=== PATIENT | female | born 1950 | race Caucasian/White ===

== ENCOUNTER 2020-04-07 19:08 | Observation (INO) | payer MEDICARE, SELFPAY ==
--- NOTE | 2020-04-07 19:17 | ED.NAVMDI ---
HPI - Nausea/Vomiting/Diarrhea General Chief complaint: General Medical Stated complaint: general weakness, n/v Time Seen by Provider: 04/07/20 19:17 Source: patient Mode of arrival: EMS Limitations: no limitations History of Present Illness HPI Narrative: Patient just discharged from [facility] after a fall and brain bleed. now weak all over with LAVONNE MD elicited complaint: nausea and vomiting Pertinent past history: other (recent brain bleed and hospitalization) Onset (ago): day(s) Description of vomiting: watery Description of diarrhea: watery Context: trauma and anticoagulant use Associated symptoms: other (shortness of breath) Related Data Allergies Allergy/AdvReac Type Severity Reaction Status Date / Time colchicine Allergy Unknown Verified 04/07/20 19:29 Review of Systems Constitutional: Constitutional: Reports no additional constitutional complaints Eyes: Eyes: Reports no additional eye complaints ENT: Denies dizziness Cardiovascular: Cardiovascular: Reports no additional cardiovascular complaints Respiratory: Respiratory: Reports as per HPI Gastrointestinal: Gastrointestinal: Reports no additional gastrointestinal complaints Genitourinary: Genitourinary: Reports no additional female genitourinary complaints Musculoskeletal: Musculoskeletal: Reports no additional musculoskeletal complaints Integumentary/Breasts: Skin/Breast: Denies rash Neurologic: Reports system reviewed and no additional complaints, except as documented, Denies dizziness and Denies Sensory deficit (Neuro) Psychiatric: Psychiatric: Denies anxiety PMFSH Social History Social History Alcohol intake: never Smoking Status: Never smoker Use of substances other than those prescribed or required for medical reasons: No Advance Directives: No Advance Directives Information Provided: Yes Physical Exam Vital Signs: Vital Signs: Vital Signs Temp Pulse Resp BP Pulse Ox 04/08/20 00:00 98.6 F 87 20 141/55 H 96 04/07/20 22:21 95 04/07/20 22:16 99.5 F 94 18 151/60 H 93 04/07/20 20:00 99.5 F 88 19 137/56 L 94 04/07/20 19:20 98.6 F 83 18 126/51 L 92 Body Mass Index 25.6 Const: General: healthy appearing Nutritional Appearance: average body habitus Orientation/consciousness: oriented to person and patient oriented x3 Limitations: no limitations HENMT: Head: Yes normal to inspection Ears: external ears normal General nose exam: Normal external nose present Mouth: Normal oral and palatal mucosa present and oropharynx normal Throat: Yes posterior oropharynx normal Eyes: General: appearance normal, both eyes and all related structures Neck: Other: supple Neck: Yes normal visual inspection Chest: Chest palpation & inspection: normal inspection of the chest Resp: Other: left sided rales Cardio: Jugular venous distension: no JVD Rate: regular rate Rhythm: regular rhythm Heart sounds: S1 normal heart sound present and S2 normal heart sound present GI: Inspection: Yes normal to inspection Palpation (GI): Soft to palpation, nontender and No hepatosplenomegaly present Auscultation: normal bowel sounds : General: Yes no CVA tenderness Back/Spine/Pelvis: Back: no CVA tenderness Skin: Other: periorbital ecchymosis Neuro: General: oriented to person and patient oriented x3 Cranial nerves: Yes CN's II-XII intact bilaterally Motor exam (neuro): 5/5 motor strength present throughout Sensory Exam: No Sensory deficit (Neuro) Extrem: General: Yes normal to inspection Psych: Appearance: grossly normal Course Course Course Narrative: patient still with weakness and vomiting will admit, no evidence of pneumonia Reevaluation(s) Reevaluation #1: discussed with hospitalist MDM - Nausea/Vomiting/Diarrhea MDM Narrative Medical decision making narrative: entertained COVID, post concussion, gastroenteritis, subdural hematoma Lab Data Result diagrams: 04/07/20 20:37 04/07/20 20:37 Labs: Lab Results 04/07/20 04/07/20 Range/Units 20:37 20:37 WBC 5.6 (4.8-10.8) X10*3/uL RBC 2.89 L (4.20-5.50) X10*6/uL Hgb 8.2 L (12.0-16.0) g/dl Hct 25.3 L (37-47) % MCV 87.5 (80-98) fL MCH 28.4 (27.0-33.0) pg MCHC 32.4 (31.0-35.0) g/dl RDW 17.7 H (11.0-16.0) % Plt Count 117 L (160-400) X10*3/uL MPV 9.5 (9.4-12.3) fL Immature Gran % (Auto) 1.8 H (0.0-0.4) % Neut % (Auto) 74.0 H (45-73) % Lymph % (Auto) 11.7 L (20-40) % [place] % (Auto) 11.2 H (2-11) % Eos % (Auto) 0.9 (0-4) % Baso % (Auto) 0.4 (0-2) % Lymph # (Auto) 0.7 L (1.2-4.9) X10*3/uL [place] # (Auto) 0.6 (0.1-1.2) X10*3/uL Eos # (Auto) 0.1 (0.0-0.4) X10*3/uL Baso # (Auto) 0.0 (0.0-0.2) X10*3/uL Abs Immat Gran (auto) 0.10 H (0.00-0.03) X10*3/uL Absolute Neuts (auto) 4.2 (2.0-8.3) X10*3/uL Absolute Nucleated RBC 0.000 (0.0-0.012) X10*3/uL Nucleated RBC % (auto) 0.0 (0.0-0.2) /100WBC Smear Tech's Comments VERIFIED Sodium 134 L (135-145) mmol/L Potassium 3.6 (3.3-5.1) mmol/l Chloride 100 (96-108) mmol/L Carbon Dioxide 22 (22-29) mmol/L Anion Gap 16 (12-20) BUN 7 L (9-16) mg/dL Creatinine 0.77 (0.5-1.4) mg/dL Estim Creat Clear Calc 69.1 Estimated GFR > 60 Random Glucose 126 H (60-115) mg/dL Calcium 7.3 L (8.4-10.2) mg/dL Discharge Plan Discharge Clinical Impression: Moderate nausea and vomiting, SARS-associated coronavirus infection, Chronic subdural hematoma Patient Disposition: Admitted As Inpatient
[2020-04-07 19:20] VITALS: BP 126/51; BP 95/65; PULSE 103; PULSE 83; RESP 18; TEMP 37; O2SAT 92; O2SAT 94; BMI 25.6
--- NOTE | 2020-04-07 19:46 | CT_ITS ---
EXAMINATION: CT HEAD WITHOUT CONTRAST CLINICAL INFORMATION: Recent brain bleed COMPARISON: None TECHNIQUE: Contiguous axial imaging was performed from the skull base to vertex without intravenous administration of contrast. This CT examination was performed using dose optimization techniques as appropriate, variously including the following: *Automated exposure control *Adjustment of mA and/or kV according to patient size (this includes techniques or standardized protocols for targeted exams where dose is matched to indication/reason for exam; i.e. extremities or head) *Use of iterative reconstruction technique DLP: 615 mGy-cm FINDINGS: Tiny subdural hematoma along the right vertex which measures only approximately 5 mm in maximum thickness. No abnormal mass effect or midline shift is seen. [place] to white matter differentiation is well preserved. The ventricles are normal in size. The osseous structures and soft tissues are normal. The right maxillary sinus with only partially visualized, however, there is suggestion of prior sinus surgery. IMPRESSION: Tiny subdural hematoma along the right vertex. This would be consistent with provided history. Recommend correlation with prior imaging if available.
--- NOTE | 2020-04-07 19:46 | XR_ITS ---
EXAMINATION: XR CHEST CLINICAL INFORMATION: Hypoxia and left-sided rales COMPARISON: None TECHNIQUE: 2 views of the chest were obtained. FINDINGS: Low lung volumes. No focal consolidation or mass. Normal pulmonary vascularity. No pleural effusion or pneumothorax. Calcified aortic arch. Normal heart size. IMPRESSION: No acute pulmonary disease.
[2020-04-07 20:00] VITALS: BP 137/56; PULSE 88; RESP 19; TEMP 37.5; O2SAT 94
--- NOTE | 2020-04-07 20:00 | PC.NURSE ---
patient transported to ct scan, will goto xray and then change to room 1 when she comes back
[2020-04-07] MEDS: 0.9 % Sodium Chloride 500 ML 1000 ML IV (20:25)
[2020-04-07] MEDS: ondansetron HCL 4 MG/2 ML VIAL IVPUSH (20:25)
[2020-04-07 20:48] LABS: Basophils Percent Auto 0.4 % (0-2); Eosinophils Absolute Auto 0.1 X10*3/uL (0.0-0.4); Eosinophils Percent Auto 0.9 % (0-4); Hematocrit 25.3 % (37-47); Hemoglobin 8.2 g/dl (12.0-16.0); Imm Gran Pct Auto 1.8 % (0.0-0.4); Lymphocytes Absolute Auto 0.7 X10*3/uL (1.2-4.9); Lymphocytes Percent Auto 11.7 % (20-40); MANUAL DIFF FLAG SCAN; Mean Corpuscular HGB Conc 32.4 g/dl (31.0-35.0); Mean Corpuscular Hemoglobin 28.4 pg (27.0-33.0); Mean Corpuscular Volume 87.5 fL (80-98); Mean Platelet Volume 9.5 fL (9.4-12.3); Monocytes Absolute Auto 0.6 X10*3/uL (0.1-1.2); Monocytes Percent Auto 11.2 % (2-11); Neutrophils Absolute Auto 4.2 X10*3/uL (2.0-8.3); Platelet Count 117 X10*3/uL (160-400); Red Blood Count 2.89 X10*6/uL (4.20-5.50); Red Cell Distribution Width 17.7 % (11.0-16.0); SCAN SMEAR FLAG 1; White Blood Count 5.6 X10*3/uL (4.8-10.8)
--- NOTE | 2020-04-07 21:00 | PC.NURSE ---
patient a&ox3, vitals obtained, pt medicated per order, blood obtained per order, pt had complete bed change as she was incontinent of large amount of liquid stool/yellow in color
[2020-04-07 21:07] LABS: SLIDE REVIEW VERIFIED
[2020-04-07 21:14] LABS: Anion Gap 16 (12-20); Blood Urea Nitrogen 7 mg/dL (9-16); Calcium 7.3 mg/dL (8.4-10.2); Carbon Dioxide 22 mmol/L (22-29); Chloride 100 mmol/L (96-108); Creatinine Clr Calc Pharmacy 69.1; Estimated Glomerular Filt Rate > 60; Glucose Random 126 mg/dL (60-115); Potassium 3.6 mmol/l (3.3-5.1); Sodium 134 mmol/L (135-145)
--- NOTE | 2020-04-07 21:28 | PC.NURSE ---
patient urinated on bedpan
[2020-04-07 22:16] VITALS: BP 151/60; PULSE 94; RESP 18; TEMP 37.5; O2SAT 93
--- NOTE | 2020-04-07 22:19 | PC.NURSE ---
patient a&ox3, used bedpan, vitals obtained/patients o2 sat running between 91-93% she drops with movement in bed, applied 2l o2 patients o2 sat increased to 95%, will continue to monitor.
[2020-04-07 22:21] VITALS: O2SAT 95
[2020-04-08] VITALS (11 sets, daily range): BP systolic 130–154; BP diastolic 55–70; PULSE 74–90; RESP 16–20; TEMP 36.2–37; O2SAT 93–99; BMI 25.3
--- NOTE | 2020-04-08 02:05 | PC.NURSE ---
nurse to nurse report given. pt states she was covid swab at approx 2100 already
[2020-04-08] MEDS: 0.9 % Sodium Chloride 1,000 ML 100 ML IVCONT ×3 (03:22→23:42)
--- NOTE | 2020-04-08 05:49 | P.HPIM_ITS ---
History of Present Illness Date of Service: 04/08/20 Chief Complaint: generalized weakness, diarrhea this is a 69-year-old female with past medical history of recently diagnosed subdural hematoma, diabetes, hypertension, who presents hospital post discharged from [facility] 3 days ago for management of subdural hematoma with weakness. Patient reports that ever since discharge from [facility] she has been generally weak and has had a significant amount of diarrhea daily. She reported nausea vomiting to the ED but when I asked her several time she denies any nausea and vomiting. She denies any abdominal pain. She reports that the subdural hematoma was secondary to a fall. She denies headache, change in vision, no chest pain or shortness of breath. No urinary symptoms and no lower extremity edema. She denies any weakness or numbness or tingling in any extremity. On arrival to the ED patient hemodynamically stable. With no significant abnormal vitals labs are significant for hemoglobin of 8.2 which dropped from 9.4 on 05/31 sodium 134. coronavirus test was collected and sent out per ED past medical history: Hypertension, hyperlipidemia, diabetes, GERD, atrial fibrillation currently of her anticoagulant past surgical history: not obtained family history: Denies social history: Comes from home, denies tobacco alcohol or illicit drugs Review of Systems Review of Systems: Yes all other systems are reviewed and are negative ENT: Denies dizziness Neurologic: Reports system reviewed and no additional complaints, except as documented, Denies dizziness and Denies Sensory deficit (Neuro) [facility] Medical History Atrial fibrillation Diabetes mellitus, type 2 Hypertension Lymphoma Social History Alcohol intake: never Smoking Status: Never smoker Use of substances other than those prescribed or required for medical reasons: No Advance Directives: No Advance Directives Information Provided: Yes Meds Allergies Allergy/AdvReac Type Severity Reaction Status Date / Time colchicine Allergy Unknown Verified 04/07/20 19:29 Home Medications Medication Instructions Recorded Confirmed Type atorvastatin 1 tab PO DAILY 04/08/20 04/08/20 History diltiazem HCl 1 cap PO DAILY 04/08/20 04/08/20 History melatonin 3 mg PO BEDTIME PRN 04/08/20 04/08/20 History metformin 2 tab PO BID 04/08/20 04/08/20 History metoprolol succinate 3 tab PO DAILY 04/08/20 04/08/20 History pantoprazole 1 tab PO DAILY 04/08/20 04/08/20 History prednisone 3 tab PO DAILY 04/08/20 04/08/20 History Physical Exam Vital Signs and Narrative: Vital Signs: Last Vital Signs Temp 97.5 F 04/08/20 04:00 Pulse 86 04/08/20 04:00 Resp 17 04/08/20 04:00 BP 134/64 04/08/20 04:00 Pulse Ox 99 04/08/20 04:00 Body Mass Index 25.3 Const: General: cooperative and no acute distress Orientation/consciousness: patient oriented x3 HENMT: Other: bruises on face Eyes: General: appearance normal, both eyes and all related structures Pupils: Equal, round and reactive pupils present Resp: Effort & Inspection: normal respiratory effort and able to speak in complete sentences Auscultation: clear to auscultation bilaterally Cardio: Rate: regular rate Rhythm: regular rhythm GI: Palpation (GI): Soft to palpation Auscultation: normal bowel sounds Skin: General skin exam: no rashes or lesions noted Neuro: General: patient oriented x3 Cranial nerves: Yes Equal, round and reactive pupils present Cognition (Neuro): normal cognition Sensory Exam: No Sensory deficit (Neuro) Extrem: General: Yes normal to inspection and Yes no pedal edema Results Labs Labs: Laboratory Tests 04/07/20 04/07/20 20:37 20:37 WBC 5.6 RBC 2.89 L Hgb 8.2 L Hct 25.3 L MCV 87.5 MCH 28.4 MCHC 32.4 RDW 17.7 H Plt Count 117 L MPV 9.5 Immature Gran % (Auto) 1.8 H Neut % (Auto) 74.0 H Lymph % (Auto) 11.7 L [place] % (Auto) 11.2 H Eos % (Auto) 0.9 Baso % (Auto) 0.4 Lymph # (Auto) 0.7 L [place] # (Auto) 0.6 Eos # (Auto) 0.1 Baso # (Auto) 0.0 Abs Immat Gran (auto) 0.10 H Absolute Neuts (auto) 4.2 Absolute Nucleated RBC 0.000 Nucleated RBC % (auto) 0.0 Smear Tech's Comments VERIFIED Sodium 134 L Potassium 3.6 Chloride 100 Carbon Dioxide 22 Anion Gap 16 BUN 7 L Creatinine 0.77 Estim Creat Clear Calc 69.1 Estimated GFR > 60 Random Glucose 126 H Calcium 7.[address] scan - head: Radiologist's impression: IMPRESSION: Tiny subdural hematoma along the right vertex. This would be consistent with provided history. Recommend correlation with prior imaging if available. Assessment and Plan (1) Diarrhea: Status: Acute (2) Generalized weakness: Status: Acute (3) Chronic subdural hematoma: Status: Acute (4) Atrial fibrillation: Status: Acute (5) Diabetes mellitus, type 2: Status: Acute this is a 69-year-old female with recently diagnosed subdural hematoma who was discharged from [facility] few days ago presents to the hospital with complaints of diarrhea and generalized weakness. Patient apparently also complained about nausea vomiting to the ED although to me she denies this. # diarrhea - reports recent antibiotic use therefore C diff must be ruled out - denies abdominal pain, no leukocytosis, afebrile - will send C diff, stool cultures, - start IV fluids - hold off starting antibiotics given patient has no significant systemic signs of infection # generalized weakness - most likely the condition post hospitalization plan: - PT OT, care management for discharge planning to possible rehab # subdural hematoma - sustained at the beginning of this month, secondary to a fall, patient managed at [facility] - CT of the head now shows small subdural hematoma with no clear changes - patient demonstrates no neurological deficits plan: - will monitor for any neurological changes # atrial fibrillation - patient currently not on anticoagulation denies symptoms secondary to the recent subdural hematoma - will continue diltiazam and metoprolol # diabetes mellitus - hold metformin - start low-dose sliding scale insulin - diabetic diet # hypertension - continue diltiazem DVT prophylaxis: SCDs date of service 04/08/2020
[2020-04-08 08:13] LABS: Glucose, Whole Blood 62 mg/dL (60-115)
[2020-04-08] MEDS: dilTIAZem HCL CD 120 MG CAP.ER.DEG PO (08:42)
[2020-04-08] MEDS: Omeprazole 40 MG CAPSULE.DR PO (08:42)
[2020-04-08] MEDS: Atorvastatin Calcium 40 MG TABLET PO (08:42)
[2020-04-08] MEDS: Metoprolol Succinate ER 50 MG TAB.ER.24H 150 MG PO (08:42)
[2020-04-08] MEDS: predniSONE 1 MG TABLET 3 MG PO (08:42)
[2020-04-08 11:30] LABS: SARS COV2 PCR INHOUSE NEGATIVE (Negative)
[2020-04-08 11:51] LABS: Glucose, Whole Blood 94 mg/dL (60-115)
[2020-04-08 16:21] LABS: Glucose, Whole Blood 139 mg/dL (60-115)
[2020-04-08 21:12] LABS: Glucose, Whole Blood 136 mg/dL (60-115)
[2020-04-08] MEDS: Acetaminophen 325 MG TABLET 650 MG PO (23:00)
[2020-04-09] VITALS (7 sets, daily range): BP systolic 124–158; BP diastolic 60–76; PULSE 68–84; RESP 16–20; TEMP 36.1–36.6; O2SAT 94–96
[2020-04-09 05:11] LABS: Basophils Percent Auto 0.3 % (0-2); Eosinophils Absolute Auto 0.1 X10*3/uL (0.0-0.4); Eosinophils Percent Auto 1.9 % (0-4); Hematocrit 25.9 % (37-47); Hemoglobin 7.9 g/dl (12.0-16.0); Imm Gran Abs Auto 0.05 X10*3/uL (0.00-0.03); Imm Gran Pct Auto 1.3 % (0.0-0.4); Lymphocytes Absolute Auto 0.5 X10*3/uL (1.2-4.9); Lymphocytes Percent Auto 12.8 % (20-40); MANUAL DIFF FLAG SCAN; Mean Corpuscular HGB Conc 30.5 g/dl (31.0-35.0); Mean Corpuscular Hemoglobin 27.2 pg (27.0-33.0); Mean Corpuscular Volume 89.3 fL (80-98); Mean Platelet Volume 9.3 fL (9.4-12.3); Monocytes Absolute Auto 0.6 X10*3/uL (0.1-1.2); Monocytes Percent Auto 15.5 % (2-11); Neutrophils Absolute Auto 2.6 X10*3/uL (2.0-8.3); Neutrophils Percent Auto 68.2 % (45-73); Red Cell Distribution Width 17.8 % (11.0-16.0); SCAN SMEAR FLAG 1; White Blood Count 3.8 X10*3/uL (4.8-10.8)
[2020-04-09 05:31] LABS: Platelet Count 89 X10*3/uL (160-400)
[2020-04-09 05:35] LABS: SLIDE REVIEW VERIFIED
[2020-04-09 05:53] LABS: Anion Gap 15 (12-20); Blood Urea Nitrogen 7 mg/dL (9-16); Calcium 7.5 mg/dL (8.4-10.2); Carbon Dioxide 22 mmol/L (22-29); Chloride 104 mmol/L (96-108); Creatinine Clr Calc Pharmacy 75.6; Estimated Glomerular Filt Rate > 60; Glucose Random 118 mg/dL (60-115); Potassium 3.4 mmol/l (3.3-5.1); Sodium 138 mmol/L (135-145)
[2020-04-09 07:54] LABS: Glucose, Whole Blood 99 mg/dL (60-115)
[2020-04-09] MEDS: predniSONE 1 MG TABLET 3 MG PO (08:01)
[2020-04-09] MEDS: Atorvastatin Calcium 40 MG TABLET PO (08:01)
[2020-04-09] MEDS: Omeprazole 40 MG CAPSULE.DR PO (08:01)
[2020-04-09] MEDS: Metoprolol Succinate ER 50 MG TAB.ER.24H 150 MG PO (08:02)
[2020-04-09] MEDS: dilTIAZem HCL CD 120 MG CAP.ER.DEG PO (08:02)
[2020-04-09 11:36] LABS: Glucose, Whole Blood 148 mg/dL (60-115)
--- NOTE | 2020-04-09 11:41 | P.PNIM_ITS ---
Subjective Subjective Date of Service: 04/09/20 Interval History: Seen in follow up for for weakness and diarrhea Review of Systems Card: no chest pain GI: No n/v or diarrhea Gen: no fever Physical Exam Vital Signs: Vital Signs: Vital Signs Temp Pulse Resp BP Pulse Ox 04/09/20 11:35 97.0 F 74 18 148/67 H 95 04/09/20 08:02 68 158/60 H 04/09/20 07:48 97.8 F 68 16 96 04/09/20 03:55 97.5 F 72 20 143/68 H 94 04/08/20 23:28 97.7 F 76 18 141/67 H 96 04/08/20 19:47 98.1 F 75 17 152/69 H 93 04/08/20 15:53 97.9 F 74 18 134/69 95 04/08/20 12:00 97.8 F 82 18 130/60 95 Constitutional Awake and Alert, No apparent distress Neck Supple, No lymphadenopathy Cardiovascular RRR, No M/R/G, S1 S2, No S3 S4, No pedal edema Respiratory Lungs clear, No respiratory distress Gastrointestinal Non tender, Non-distended Skin No rash Neurological Alert & oriented x3 Psychological Appropriate affect Objective Data Current Medications Generic Name Dose Route Start Last Admin Trade Name Freq PRN Reason Stop Dose Admin Acetaminophen 650 mg 04/08/20 03:03 04/08/20 23:00 Acetaminophen 325 Mg Tablet PO 650 mg Q6H PRN Administration Pain, Mild (Pain Scale 1-3) Atorvastatin Calcium 40 mg 04/08/20 09:00 04/09/20 08:01 Atorvastatin Calcium 40 Mg Tablet PO 40 mg DAILY AXEL Administration Diltiazem HCl 120 mg 04/08/20 09:00 04/09/20 08:02 Diltiazem Hcl Cd 120 Mg Cap.Er.Deg PO 120 mg DAILY [facility] Administration Protocol Insulin Human Lispro 0 unit 04/08/20 07:30 04/09/20 11:39 Insulin Lispro 100 Unit/Ml 3 Ml Vial SUBCUT Not Given QIDACHS [facility] Protocol Melatonin 3 mg 04/08/20 05:50 Melatonin 3 Mg Tablet PO BEDTIME PRN Sleep Metoprolol Succinate 150 mg 04/08/20 09:00 04/09/20 08:02 Metoprolol Succinate Er 50 Mg Tab.Er.24h PO 150 mg DAILY [facility] Administration Protocol Omeprazole 40 mg 04/08/20 09:00 04/09/20 08:01 Omeprazole 40 Mg Capsule. PO 40 mg DAILY AXEL Administration Ondansetron HCl 4 mg 04/08/20 03:03 Ondansetron Hcl 4 Mg/2 Ml Vial IVPUSH Q8H PRN Nausea and Vomiting Prednisone 3 mg 04/08/20 09:00 04/09/20 08:01 Prednisone 1 Mg Tablet PO 3 mg DAILY AXEL Administration Sodium Chloride 3 ml 04/08/20 08:00 04/09/20 08:01 0.9 % Sodium Chloride Flush 3 Ml Syringe IVFLUSH Not Given QSHIFT AXEL Zolpidem Tartrate 5 mg 04/08/20 03:03 Zolpidem Tartrate 5 Mg Tablet PO BEDTIME PRN Insomnia Labs CBC & Chem 7: 04/09/20 04:59 04/09/20 04:59 Microbiology Microbiology Results: Microbiology 04/07/20 21:07 Blood - Venous Blood Culture - Preliminary No growth after 24 hours. 04/07/20 20:37 Blood - Venous Blood Culture - Preliminary No growth after 24 hours. Assessment and Plan (1) Generalized weakness: Status: Acute (2) Diarrhea: Status: Acute (3) Diabetes mellitus, type 2: Status: Acute (4) Atrial fibrillation: Status: Acute (5) Chronic subdural hematoma: Status: Acute Assessment and Plan: 69-year-old female with recently diagnosed subdural hematoma who was discharged from [facility] few days ago presents to the hospital with complaints of diarrhea and generalized weakness. Patient apparently also complained about nausea vomiting to the ED although to me she denies this. # Diarrhea seems to have self limited, haven't been able to collect sample for C dif, hydrated and tolerating diet # generalized weakness--multifactorial including recent hospitalization at [facility], dehydration from diarrhea. -PT recommends STR # subdural hematoma - sustained at the beginning of this month, secondary to a fall, patient managed at [facility] - CT of the head now shows small subdural hematoma with no clear changes - patient demonstrates no neurological deficits - will monitor for any neurological changes # atrial fibrillation - patient currently not on anticoagulation denies symptoms secondary to the recent subdural hematoma - will continue diltiazam and metoprolol # diabetes mellitus - hold metformin - sliding scale insulin - diabetic diet # hypertension - continue diltiazem DVT prophylaxis with device, and possible d/c later today
--- NOTE | 2020-04-09 12:45 | MHC.CM.PN ---
met with pt who wants to go to [facility] when dcd, dr erazo and physical therapy are recommending str referreal to [facility] per pt choice
[2020-04-09] MEDS: 0.9 % Sodium Chloride Flush 3 ML SYRINGE IVFLUSH (16:47)
[2020-04-09 16:53] LABS: Glucose, Whole Blood 140 mg/dL (60-115)
[2020-04-09] MEDS: ondansetron HCL 4 MG/2 ML VIAL IVPUSH (20:40)
[2020-04-09 20:50] LABS: Glucose, Whole Blood 150 mg/dL (60-115)
[2020-04-10] MEDS: 0.9 % Sodium Chloride Flush 3 ML SYRINGE IVFLUSH ×2 (01:03→07:39)
[2020-04-10 03:45] VITALS: BP 146/56; PULSE 84; RESP 18; TEMP 36.4; O2SAT 93
[2020-04-10] MEDS: ondansetron HCL 4 MG/2 ML VIAL IVPUSH (07:39)
[2020-04-10 07:48] LABS: Glucose, Whole Blood 105 mg/dL (60-115)
[2020-04-10 08:00] VITALS: BP 165/79; PULSE 94; RESP 20; TEMP 36.6; O2SAT 91
[2020-04-10 10:10] VITALS: BP 165/79; PULSE 94
[2020-04-10] MEDS: Metoprolol Succinate ER 50 MG TAB.ER.24H 150 MG PO (10:10)
[2020-04-10] MEDS: Omeprazole 40 MG CAPSULE.DR PO (10:10)
[2020-04-10 10:11] VITALS: PULSE 94
[2020-04-10] MEDS: Atorvastatin Calcium 40 MG TABLET PO (10:11)
[2020-04-10] MEDS: predniSONE 1 MG TABLET 3 MG PO (10:11)
[2020-04-10] MEDS: dilTIAZem HCL CD 120 MG CAP.ER.DEG PO (10:11)
[2020-04-10 11:23] VITALS: BP 166/70; PULSE 96; RESP 18; TEMP 36.8; O2SAT 95
[2020-04-10 11:25] VITALS: BP 166/70; PULSE 96; O2SAT 95
[2020-04-10 11:48] LABS: Glucose, Whole Blood 125 mg/dL (60-115)
--- NOTE | 2020-04-10 13:16 | MHC.CM.PN ---
DC today change in plan. Pt was set to dc to [facility] today. She insists that we send her to [facility]. [facility] has a bed available. [facility] notified of cancellation. Transport 2pm to [facility]
--- NOTE | 2020-04-27 13:23 | P.DS_ITS ---
DS: Providers Provider Date of admission: 04/08/20 01:18 Date of Discharge 04/10/20 Primary care physician: Pamela Grimm MD DS: Diagnosis Discharge Diagnosis (1) Generalized weakness: Status: Acute (2) Diarrhea: Status: Resolved (3) Diabetes mellitus, type 2: (4) Atrial fibrillation: (5) Chronic subdural hematoma: Status: Deleted DS: Summary Hospital Course Hospital Course: HPI from admission 69-year-old female with past medical history of recently diagnosed subdural hematoma, diabetes, hypertension, who presents hospital post discharged from [facility] 3 days ago for management of subdural hematoma with weakness. Patient reports that ever since discharge from [facility] she has been generally weak and has had a significant amount of diarrhea daily. She reported nausea vomiting to the ED but when I asked her several time she denies any nausea and vomiting. She denies any abdominal pain. She reports that the subdural hematoma was secondary to a fall. She denies headache, change in vision, no chest pain or shortness of breath. No urinary symptoms and no lower extremity edema. She denies any weakness or numbness or tingling in any extremity. On arrival to the ED patient hemodynamically stable. With no significant abnormal vitals labs are significant for hemoglobin of 8.2 which dropped from 9.4 on 05/31 sodium 134. coronavirus test was collected and sent out per ED past medical history: Hypertension, hyperlipidemia, diabetes, GERD, atrial fibrillation currently of her anticoagulant past surgical history: not obtained family history: Denies social history: Comes from home, denies tobacco alcohol or illicit drugs Hospital course by problems: 69-year-old female with recently diagnosed subdural hematoma from fall who was discharged from [facility] few days ago presents to the hospital with complaints of diarrhea and generalized weakness. Patient apparently also complained about nausea vomiting to the ED although to me she denies this. # Diarrhea seems to have self limited, haven't been able to collect sample for C dif, hydrated and tolerating diet # generalized weakness--multifactorial including recent hospitalization at [facility], dehydration from diarrhea. -PT recommends STR, patient is agreable # subdural hematoma - sustained at the beginning of this month, secondary to a fall, patient managed at [facility] - CT of the head now shows small subdural hematoma with no clear changes - patient demonstrates no neurological deficits - monitored and no neurological changes # atrial fibrillation - patient currently not on anticoagulation denies symptoms secondary to the recent subdural hematoma - will continue diltiazam and metoprolol # diabetes mellitus - resume metformin - diabetic diet # hypertension - continue diltiazem, metoprolo Dispo: to STR Time Spent with Patient Time attestation: Total time spent providing and/or coordinating discharge services: > 30 minutes Physical Exam Vital Signs: Vital Signs: Body Mass Index 25.3 at time of discharge General: AO X 3, no acute distress Resp: CTA bilateral CVS: S1,S2,RRR GI: +BS, NT, no distention Skin: No rash Neuro: motor grossly intact Psych: appropriate affect DS: Data Data Completed and Pending Completed studies during hospitalization [Text1]: y Discharge Plan Discharge Anticipated Discharge Date/Time: 04/10/20 11:20 Patient Disposition: Xfer [facility] Referrals: [facility] [Outside] Pamela Grimm MD [Primary Care Provider] - Discharge Medications: Continued atorvastatin 40 mg tablet 40 mg PO BEDTIME RF: 0 metformin 500 mg tablet 1,000 tab PO BIDWMEAL RF: 0 pantoprazole [Protonix] 40 mg tablet,delayed release (DR/EC) 40 mg PO DAILY@0600 RF: 0 diltiazem HCl 120 mg capsule,extended release 24hr 120 mg PO DAILY RF: 0 melatonin 3 mg Tablet 3 mg PO BEDTIME RF: 0 metoprolol succinate 50 mg tablet extended release 24 hr 150 mg PO DAILY RF: 0 Discharge Orders: Discharge Order (Routine); Ordered 04/10/20 Ordered By: Adarsh Garrett Diet: advance to your usual diet Activity on Discharge: As tolerated Discharge Date/Time: 04/10/20 14:16 Care Plan Goals: Rehabilitation from weakness and recent fall with brain bleed Health Concerns: Brain trauma, stroke risk without anticoagulation Plan of Treatment: Short term rehab
== END 2020-04-10 14:16 | disposition skilled nursing facility (03) ==
LOC: HO.ED 04-08 01:01 → HO.IMC 04-08 01:37
PROVIDERS: Admitting Provider Internal Medicine; Emergency Provider Emergency Medicine; PCP Family Medicine; Visit Provider Internal Medicine
DX: R19.7 Diarrhea, unspecified (principal); I62.03 Nontraumatic chronic subdural hemorrhage; R53.1 Weakness; R11.2 Nausea with vomiting, unspecified; E11.9 Type 2 diabetes mellitus without complications; I10 Essential (primary) hypertension; E78.5 Hyperlipidemia, unspecified; K21.9 Gastro-esophageal reflux disease without esophagitis; I48.91 Unspecified atrial fibrillation; Z88.8 Allergy status to other drugs, medicaments and biological substances; Z11.59 Encounter for screening for other viral diseases; Z91.81 History of falling; Z79.01 Long term (current) use of anticoagulants; Z79.52 Long term (current) use of systemic steroids; Z79.84 Long term (current) use of oral hypoglycemic drugs; Z79.899 Other long term (current) drug therapy
CPT/HCPCS: 36415; 70450; 71046; 80048; 82947; 85025; 87040; 87635; 96361; 96374; 96375; 96376; 97110; 97116; 97163; 99219; 99284; 99285; J2405

== ENCOUNTER 2020-04-11 05:20 | Outpatient (REF) | payer SELFPAY ==
[2020-04-11 05:36] LABS: Hematocrit 25.3 % (37-47); Hemoglobin 7.9 g/dl (12.0-16.0); Mean Corpuscular HGB Conc 31.2 g/dl (31.0-35.0); Mean Corpuscular Hemoglobin 27.3 pg (27.0-33.0); Mean Corpuscular Volume 87.5 fL (80-98); Platelet Count 109 X10*3/uL (160-400); Red Blood Count 2.89 X10*6/uL (4.20-5.50); Red Cell Distribution Width 17.5 % (11.0-16.0); White Blood Count 4.1 X10*3/uL (4.8-10.8)
[2020-04-11 06:20] LABS: Alanine Aminotransferase 6 U/L (0-31); Albumin Level 2.5 g/dL (3.5-5.0); Alkaline Phosphatase 76 U/L (39-117); Anion Gap 16 (12-20); Aspartate Amino Transferase 13 U/L (5-31); Bilirubin Total 0.4 mg/dL (0.0-1.0); Blood Urea Nitrogen 5 mg/dL (9-16); Calcium 7.9 mg/dL (8.4-10.2); Carbon Dioxide 23 mmol/L (22-29); Chloride 99 mmol/L (96-108); Estimated Glomerular Filt Rate > 60; Glucose Random 88 mg/dL (60-115); Potassium 3.2 mmol/l (3.3-5.1); Sodium 135 mmol/L (135-145); Total Protein 5.2 g/dL (6.5-8.0)
== END 2020-04-11 05:21 | disposition home or self-care (01) ==
LOC: HO.MMNH1L 05:20
PROVIDERS: Visit Provider Family Medicine
DX: E11.9 Type 2 diabetes mellitus without complications (principal); I10 Essential (primary) hypertension; R53.1 Weakness
CPT/HCPCS: 36415; 80053; 85027

== ENCOUNTER 2020-04-12 10:12 | Inpatient (IN) | payer MEDICARE, SELFPAY ==
--- NOTE | 2020-04-12 10:17 | ED.AMS ---
HPI - Altered Mental Status General Chief Complaint: Altered Mental Status Stated Complaint: lethergy/ams Time Seen by Provider: 04/12/20 10:17 Source: patient, EMS and old records reviewed Mode of arrival: EMS Limitations: altered mental status History of Present Illness HPI narrative: of note EMS was told by SNF staff they didn't know her baseline and she was just transferred there a few days ago post ICH from another facility, more weak today increasing AMS for 2 days, SNF notes are severely limited - no medication list given, she is FULL CODE, one note states she is aspiration risk complaint: altered mental status Onset (ago): day(s) (2) Timing confirmed by: other (staff at SNF) Severity: moderate Consistency of symptoms: getting Worse Context: trauma (recent hospitalization ?[facility] for ICH) Associated symptoms: loss of appetite, malaise, weakness and incontinence Treatments prior to arrival: other (none) Related Data Home Medications Medication Instructions Recorded Confirmed atorvastatin 40 mg PO BEDTIME 04/08/20 04/12/20 diltiazem HCl 120 mg PO DAILY 04/08/20 04/12/20 melatonin 3 mg PO BEDTIME 04/08/20 04/12/20 metformin 1,000 tab PO BIDWMEAL 04/08/20 04/12/20 metoprolol succinate 150 mg PO DAILY 04/08/20 04/12/20 pantoprazole [Protonix] 40 mg PO DAILY@0600 04/08/20 04/12/20 Allergies Allergy/AdvReac Type Severity Reaction Status Date / Time colchicine Allergy Unknown Verified 04/07/20 19:29 Review of Systems Review of Systems: ROS unable to be obtained due to altered mental status [facility] Past Medical History Attestation statement: The following information was validated with the patient. Medical History (Updated 04/12/20 @ 13:44 by Negrita Gaitan DO) Atrial fibrillation Atrial fibrillation Chronic pericarditis Diabetes Diabetes mellitus, type 2 Diffuse large B cell lymphoma Gait instability Head injury Hypertension Lymphoma Surgical History (Updated 04/12/20 @ 11:33 by Patricia Limon) Surgical history unknown Social History Social History Alcohol intake: never Smoking Status: Smoker, status unknown Use of substances other than those prescribed or required for medical reasons: Unknown Advance Directives: Yes Advance Directives Information Provided: Yes Advance Directives on File: No service: No Physical Exam Vital Signs: Vital Signs: Vital Signs Temp Pulse Resp BP Pulse Ox 04/12/20 13:05 98.5 F 104 H 26 H 123/45 L 04/12/20 12:14 102.3 F H 105 H 22 H 124/40 L 99 04/12/20 10:30 104.6 F H 115 H 29 H 144/56 H 94 Body Mass Index 24.9 Appearance: lethargic. Oriented X1. moderate acute distress. Eyes: Pupils equal, round and reactive to light. ENT: Pharynx ndry MM moderate . bruising old under both eyes Neck: Normal inspection. Neck supple. CVS: tachycardic heart rate and rhythm. Pulses normal. Respiratory: No respiratory distress. Breath sounds normal. Abdomen: Soft and nontender. no grimace with palpation Skin: Skin warm and dry. pale skin color. decreased skin turgor. Extremities: No lower extremity edema. No calf ttp Neuro: Oriented X 1. No motor deficit. No sensory deficit. Diffusely weak Course Course Course Narrative: records from [facility] [place] - [place] on 04/05 had fall on apixaban found to have small R parietal SAH and subdural hemorrhage ?hemorrhage adrenal gland - had fever during visit felt to be related to bleed and antibitoics had SVT with aberrancy also on pressors at one point for hypotension - infectious etiology ruled out cultures of urine and blood negative - fever suspected from ICH no obvious source of fevers CT scan of chest and abdomen ordered, planned admit patient drastically improved at this time, alert and oriented x 3 MDM - Altered Mental Status MDM Narrative Medical decision making narrative: 69 yo female with recent ICH records from [facility] requested, DM, O2 dependent, aspiration risk from local SNF - c/o AMS no known baseline from SNF to EMS, patient is febrile here to 104 at this time will need labs, cultures, UA, CXR empiric antibiotics Lab Data Result diagrams: 04/12/20 10:45 04/12/20 10:45 Labs: Lab Results 04/12/20 04/12/20 04/12/20 Range/Units 10:45 10:45 10:45 WBC 5.3 (4.8-10.8) X10*3/uL RBC 3.01 L (4.20-5.50) X10*6/uL Hgb 8.3 L (12.0-16.0) g/dl Hct 26.1 L (37-47) % MCV 86.7 (80-98) fL MCH 27.6 (27.0-33.0) pg MCHC 31.8 (31.0-35.0) g/dl RDW 17.3 H (11.0-16.0) % Plt Count 112 L (160-400) X10*3/uL MPV 9.9 (9.4-12.3) fL Immature Gran % (Auto) 0.8 H (0.0-0.4) % Neut % (Auto) 73.7 H (45-73) % Lymph % (Auto) 13.5 L (20-40) % [place] % (Auto) 11.4 H (2-11) % Eos % (Auto) 0.4 (0-4) % Baso % (Auto) 0.2 (0-2) % Lymph # (Auto) 0.7 L (1.2-4.9) X10*3/uL [place] # (Auto) 0.6 (0.1-1.2) X10*3/uL Eos # (Auto) 0.0 (0.0-0.4) X10*3/uL Baso # (Auto) 0.0 (0.0-0.2) X10*3/uL Abs Immat Gran (auto) 0.04 H (0.00-0.03) X10*3/uL Absolute Neuts (auto) 3.9 (2.0-8.3) X10*3/uL Absolute Nucleated RBC 0.000 (0.0-0.012) X10*3/uL Nucleated RBC % (auto) 0.0 (0.0-0.2) /100WBC PT (10.8-13.0) SEC INR (0.9-1.1) APTT (24.1-38.0) SEC VBG pH (7.32-7.43) VBG pCO2 mmhg VBG Oxygen Liters/Min VBG pO2 mmhg VBG HCO3 mmol/L VBG O2 Saturation % VBG Base Excess mmol/L Sodium 135 (135-145) mmol/L Potassium 3.6 (3.3-5.1) mmol/l Chloride 96 (96-108) mmol/L Carbon Dioxide 23 (22-29) mmol/L Anion Gap 20 (12-20) BUN 8 L (9-16) mg/dL Creatinine 1.10 (0.5-1.4) mg/dL Estim Creat Clear Calc 44.5 Estimated GFR 49 Random Glucose 115 (60-115) mg/dL Lactic Acid 1.5 (0.5-2.0) mmol/L Calcium 8.1 L (8.4-10.2) mg/dL Magnesium (1.6-2.6) mg/dL Total Bilirubin 0.4 (0.0-1.0) mg/dL Direct Bilirubin 0.3 (0.0-0.5) mg/dL AST 20 (5-31) U/L ALT 6 (0-31) U/L Alkaline Phosphatase 72 (39-117) U/L Troponin I High Sens (<3.5-17.0) ng/L B-Natriuretic Peptide (<100) pg/mL Total Protein 5.7 L (6.5-8.0) g/dL Albumin 2.7 L (3.5-5.0) g/dL Lipase 26 (8-78) U/L Procalcitonin ng/mL Urine Color Urine Appearance Urine pH (5.0-8.0) Ur Specific [place] (1.005-1.025) Urine Protein (NEG-TRACE) MG/DL Urine Glucose (UA) (NEG) MG/DL Urine Ketones (NEG) MG/DL Urine Blood (NEG) Urine Nitrite (NEG) Ur Leukocyte Esterase (NEG) Urine RBC (0) /HPF Urine WBC (0-4) /HPF Ur Squamous Epith Cells /LPF Urine Bacteria /LPF WBC Casts /LPF Urine Mucus /LPF 04/12/20 04/12/20 04/12/20 Range/Units 10:45 10:45 10:45 WBC (4.8-10.8) X10*3/uL RBC (4.20-5.50) X10*6/uL Hgb (12.0-16.0) g/dl Hct (37-47) % MCV (80-98) fL MCH (27.0-33.0) pg MCHC (31.0-35.0) g/dl RDW (11.0-16.0) % Plt Count (160-400) X10*3/uL MPV (9.4-12.3) fL Immature Gran % (Auto) (0.0-0.4) % Neut % (Auto) (45-73) % Lymph % (Auto) (20-40) % [place] % (Auto) (2-11) % Eos % (Auto) (0-4) % Baso % (Auto) (0-2) % Lymph # (Auto) (1.2-4.9) X10*3/uL [place] # (Auto) (0.1-1.2) X10*3/uL Eos # (Auto) (0.0-0.4) X10*3/uL Baso # (Auto) (0.0-0.2) X10*3/uL Abs Immat Gran (auto) (0.00-0.03) X10*3/uL Absolute Neuts (auto) (2.0-8.3) X10*3/uL Absolute Nucleated RBC (0.0-0.012) X10*3/uL Nucleated RBC % (auto) (0.0-0.2) /100WBC PT 22.0 H (10.8-13.0) SEC INR 1.8 H (0.9-1.1) APTT 39.7 H (24.1-38.0) SEC VBG pH (7.32-7.43) VBG pCO2 mmhg VBG Oxygen Liters/Min VBG pO2 mmhg VBG HCO3 mmol/L VBG O2 Saturation % VBG Base Excess mmol/L Sodium (135-145) mmol/L Potassium (3.3-5.1) mmol/l Chloride (96-108) mmol/L Carbon Dioxide (22-29) mmol/L Anion Gap (12-20) BUN (9-16) mg/dL Creatinine (0.5-1.4) mg/dL Estim Creat Clear Calc Estimated GFR Random Glucose (60-115) mg/dL Lactic Acid (0.5-2.0) mmol/L Calcium (8.4-10.2) mg/dL Magnesium (1.6-2.6) mg/dL Total Bilirubin (0.0-1.0) mg/dL Direct Bilirubin (0.0-0.5) mg/dL AST (5-31) U/L ALT (0-31) U/L Alkaline Phosphatase (39-117) U/L Troponin I High Sens 16.4 (<3.5-17.0) ng/L B-Natriuretic Peptide 120 H (<100) pg/mL Total Protein (6.5-8.0) g/dL Albumin (3.5-5.0) g/dL Lipase (8-78) U/L Procalcitonin ng/mL Urine Color Urine Appearance Urine pH (5.0-8.0) Ur Specific [place] (1.005-1.025) Urine Protein (NEG-TRACE) MG/DL Urine Glucose (UA) (NEG) MG/DL Urine Ketones (NEG) MG/DL Urine Blood (NEG) Urine Nitrite (NEG) Ur Leukocyte Esterase (NEG) Urine RBC (0) /HPF Urine WBC (0-4) /HPF Ur Squamous Epith Cells /LPF Urine Bacteria /LPF WBC Casts /LPF Urine Mucus /LPF 04/12/20 04/12/20 04/12/20 Range/Units 10:45 10:46 10:46 WBC (4.8-10.8) X10*3/uL RBC (4.20-5.50) X10*6/uL Hgb (12.0-16.0) g/dl Hct (37-47) % MCV (80-98) fL MCH (27.0-33.0) pg MCHC (31.0-35.0) g/dl RDW (11.0-16.0) % Plt Count (160-400) X10*3/uL MPV (9.4-12.3) fL Immature Gran % (Auto) (0.0-0.4) % Neut % (Auto) (45-73) % Lymph % (Auto) (20-40) % [place] % (Auto) (2-11) % Eos % (Auto) (0-4) % Baso % (Auto) (0-2) % Lymph # (Auto) (1.2-4.9) X10*3/uL [place] # (Auto) (0.1-1.2) X10*3/uL Eos # (Auto) (0.0-0.4) X10*3/uL Baso # (Auto) (0.0-0.2) X10*3/uL Abs Immat Gran (auto) (0.00-0.03) X10*3/uL Absolute Neuts (auto) (2.0-8.3) X10*3/uL Absolute Nucleated RBC (0.0-0.012) X10*3/uL Nucleated RBC % (auto) (0.0-0.2) /100WBC PT (10.8-13.0) SEC INR (0.9-1.1) APTT (24.1-38.0) SEC VBG pH 7.33 (7.32-7.43) VBG pCO2 46 mmhg VBG Oxygen Liters/Min TNP VBG pO2 43 mmhg VBG HCO3 24 mmol/L VBG O2 Saturation 73.0 % VBG Base Excess -2.1 mmol/L Sodium (135-145) mmol/L Potassium (3.3-5.1) mmol/l Chloride (96-108) mmol/L Carbon Dioxide (22-29) mmol/L Anion Gap (12-20) BUN (9-16) mg/dL Creatinine (0.5-1.4) mg/dL Estim Creat Clear Calc Estimated GFR Random Glucose (60-115) mg/dL Lactic Acid (0.5-2.0) mmol/L Calcium (8.4-10.2) mg/dL Magnesium 1.2 L* (1.6-2.6) mg/dL Total Bilirubin (0.0-1.0) mg/dL Direct Bilirubin (0.0-0.5) mg/dL AST (5-31) U/L ALT (0-31) U/L Alkaline Phosphatase (39-117) U/L Troponin I High Sens (<3.5-17.0) ng/L B-Natriuretic Peptide (<100) pg/mL Total Protein (6.5-8.0) g/dL Albumin (3.5-5.0) g/dL Lipase (8-78) U/L Procalcitonin 0.72 ng/mL Urine Color Urine Appearance Urine pH (5.0-8.0) Ur Specific [place] (1.005-1.025) Urine Protein (NEG-TRACE) MG/DL Urine Glucose (UA) (NEG) MG/DL Urine Ketones (NEG) MG/DL Urine Blood (NEG) Urine Nitrite (NEG) Ur Leukocyte Esterase (NEG) Urine RBC (0) /HPF Urine WBC (0-4) /HPF Ur Squamous Epith Cells /LPF Urine Bacteria /LPF WBC Casts /LPF Urine Mucus /LPF 04/12/20 Range/Units 11:52 WBC (4.8-10.8) X10*3/uL RBC (4.20-5.50) X10*6/uL Hgb (12.0-16.0) g/dl Hct (37-47) % MCV (80-98) fL MCH (27.0-33.0) pg MCHC (31.0-35.0) g/dl RDW (11.0-16.0) % Plt Count (160-400) X10*3/uL MPV (9.4-12.3) fL Immature Gran % (Auto) (0.0-0.4) % Neut % (Auto) (45-73) % Lymph % (Auto) (20-40) % [place] % (Auto) (2-11) % Eos % (Auto) (0-4) % Baso % (Auto) (0-2) % Lymph # (Auto) (1.2-4.9) X10*3/uL [place] # (Auto) (0.1-1.2) X10*3/uL Eos # (Auto) (0.0-0.4) X10*3/uL Baso # (Auto) (0.0-0.2) X10*3/uL Abs Immat Gran (auto) (0.00-0.03) X10*3/uL Absolute Neuts (auto) (2.0-8.3) X10*3/uL Absolute Nucleated RBC (0.0-0.012) X10*3/uL Nucleated RBC % (auto) (0.0-0.2) /100WBC PT (10.8-13.0) SEC INR (0.9-1.1) APTT (24.1-38.0) SEC VBG pH (7.32-7.43) VBG pCO2 mmhg VBG Oxygen Liters/Min VBG pO2 mmhg VBG HCO3 mmol/L VBG O2 Saturation % VBG Base Excess mmol/L Sodium (135-145) mmol/L Potassium (3.3-5.1) mmol/l Chloride (96-108) mmol/L Carbon Dioxide (22-29) mmol/L Anion Gap (12-20) BUN (9-16) mg/dL Creatinine (0.5-1.4) mg/dL Estim Creat Clear Calc Estimated GFR Random Glucose (60-115) mg/dL Lactic Acid (0.5-2.0) mmol/L Calcium (8.4-10.2) mg/dL Magnesium (1.6-2.6) mg/dL Total Bilirubin (0.0-1.0) mg/dL Direct Bilirubin (0.0-0.5) mg/dL AST (5-31) U/L ALT (0-31) U/L Alkaline Phosphatase (39-117) U/L Troponin I High Sens (<3.5-17.0) ng/L B-Natriuretic Peptide (<100) pg/mL Total Protein (6.5-8.0) g/dL Albumin (3.5-5.0) g/dL Lipase (8-78) U/L Procalcitonin ng/mL Urine Color YELLOW Urine Appearance HAZY Urine pH 5.5 (5.0-8.0) Ur Specific [place] >= 1.030 H (1.005-1.025) Urine Protein TRACE (NEG-TRACE) MG/DL Urine Glucose (UA) NEG (NEG) MG/DL Urine Ketones 15 (NEG) MG/DL Urine Blood NEG (NEG) Urine Nitrite NEG (NEG) Ur Leukocyte Esterase NEG (NEG) Urine RBC 0-2 (0) /HPF Urine WBC 0-2 (0-4) /HPF Ur Squamous Epith Cells 1+ /LPF Urine Bacteria NONE /LPF WBC Casts 0-2 /LPF Urine Mucus 1+ /LPF ECG Data ECG #1: Attestation: I personally reviewed and interpreted this ECG as follows: ECG interpretation date: 04/12/20 ECG interpretation time: 12:30 Interpretation: Rate:111 Rhythm: sinus tachycardia [place]: left Normal P waves. Normal [place]. LBBB ST T wave : nonspecific qTC: prolonged prior studies: none The study has been interpreted contemporaneously by me. . Critical Care Time Critical Care Time Critical Care Time: Yes Total Critical Care Time: 60 Attestation: IVF, IV antibiotics, review of records, CT scans I personally attest to this time spent taking care of the patient Discharge Plan Discharge Clinical Impression: Hypomagnesemia Fever Qualifiers: Fever type: unspecified Qualified Code(s): R50.9 - Fever, unspecified Altered mental status Qualifiers: Altered mental status type: unspecified Qualified Code(s): R41.82 - Altered mental status, unspecified Patient Disposition: Admitted As Inpatient
--- NOTE | 2020-04-12 10:24 | ECG_ITS ---
Test Reason : AMS Blood Pressure : / mmHG Vent. Rate : 111 BPM Atrial Rate : 111 BPM P-R Int : 130 ms QRS Dur : 132 ms QT Int : 390 ms P-R-T Axes : 064 -24 106 degrees QTc Int : 530 ms Sinus tachycardia Left bundle branch block Abnormal ECG No previous ECGs available Referred By: Negrita Gaitan Electronically Signed By:
--- NOTE | 2020-04-12 10:24 | CT_ITS ---
EXAMINATION: CT HEAD WITHOUT CONTRAST CLINICAL INFORMATION: AMS with recent ICH COMPARISON: April 07, 2020 TECHNIQUE: Contiguous axial imaging was performed from the skull base to vertex without intravenous administration of contrast. This CT examination was performed using dose optimization techniques as appropriate, variously including the following: *Automated exposure control *Adjustment of mA and/or kV according to patient size (this includes techniques or standardized protocols for targeted exams where dose is matched to indication/reason for exam; i.e. extremities or head) *Use of iterative reconstruction technique DLP: 823 mGy-cm FINDINGS: There is again noted to be an approximately 6 mm in diameter hyperdense region junctions of the posterior parietal and adnexa pleural lobes on the right which is difficult to tell whether it may be subarachnoid or subdural. There is diminished vertex high density but with still some remaining with the appearance of a small subdural hematoma. No significant mass effect is identified. No midline structure shift. The ventricles are normal in size. [place]-white matter interface is maintained. There is some mild periventricular white matter low density consistent with microangiopathy. The osseous are normal. The mastoid air cells are aerated. There is sphenoid sinus disease. Patient appears be status post previous right maxillary sinus surgery. There is some edema seen about the right vertex scalp. IMPRESSION: Stable appearance of what appears be some degree of subdural and subarachnoid blood with no evidence of rebleed.
--- NOTE | 2020-04-12 10:25 | XR_ITS ---
EXAMINATION: XR CHEST CLINICAL INFORMATION: Fever. Evaluate for aspiration. COMPARISON: Chest x-ray 04/07/2020 TECHNIQUE: Frontal view of the chest was obtained. FINDINGS: Cardiac silhouette is normal in size. Low lung volumes. No lobar consolidation. No pleural effusion or pneumothorax. IMPRESSION: Stable examination demonstrating no acute pulmonary pathology.
[2020-04-12 10:30] VITALS: BP 125/69; BP 144/56; PULSE 115; RESP 29; TEMP 40.3; O2SAT 94; O2SAT 98; BMI 24.9
[2020-04-12] MEDS: 0.9 % Sodium Chloride 1,000 ML 999 ML IVCONT (10:52)
[2020-04-12 10:56] LABS: MANUAL DIFF FLAG NO
[2020-04-12] MEDS: cefEPime HCl 1 GM in 0.9 % Sodium Chloride 50 ML IV (10:56)
[2020-04-12 11:00] LABS: Basophils Percent Auto 0.2 % (0-2); Eosinophils Percent Auto 0.4 % (0-4); Hematocrit 26.1 % (37-47); Hemoglobin 8.3 g/dl (12.0-16.0); Imm Gran Abs Auto 0.04 X10*3/uL (0.00-0.03); Imm Gran Pct Auto 0.8 % (0.0-0.4); Lymphocytes Absolute Auto 0.7 X10*3/uL (1.2-4.9); Lymphocytes Percent Auto 13.5 % (20-40); Mean Corpuscular HGB Conc 31.8 g/dl (31.0-35.0); Mean Corpuscular Hemoglobin 27.6 pg (27.0-33.0); Mean Corpuscular Volume 86.7 fL (80-98); Mean Platelet Volume 9.9 fL (9.4-12.3); Monocytes Absolute Auto 0.6 X10*3/uL (0.1-1.2); Monocytes Percent Auto 11.4 % (2-11); Neutrophils Absolute Auto 3.9 X10*3/uL (2.0-8.3); Neutrophils Percent Auto 73.7 % (45-73); Platelet Count 112 X10*3/uL (160-400); Red Blood Count 3.01 X10*6/uL (4.20-5.50); Red Cell Distribution Width 17.3 % (11.0-16.0); White Blood Count 5.3 X10*3/uL (4.8-10.8)
[2020-04-12 11:04] LABS: Base Excess VBG -2.1 mmol/L; HCO3 VBG 24 mmol/L; PCO2 VBG 46 mmhg; PO2 VBG 43 mmhg; pH VBG 7.33 (7.32-7.43)
--- NOTE | 2020-04-12 11:04 | PC.NURSE ---
PT HERE FOR REPORTED INCREASE IN AMS, PER EMS. PT RECENTLY DC FROM [facility] FOR BRAIN BLEED, AT STR AT [facility]. PT IS EXTREMELY WARM TO PALP, FEBRILE PER RECTAL TEMP. PT ALERT TO NAME ONLY. BLOOD LABS OBTAINED AND SENT, MEDICATED PER EMAR. PT HAS IV IN L AC. CXR AND CT SCAN COMPLETED. SINUS TACH ON TELE; HR 113 BPM.
[2020-04-12 11:05] LABS: INTERNATIONAL NORM RATIO 1.8 (0.9-1.1)
[2020-04-12 11:08] LABS: Partial Thromboplastin Time 39.7 SEC (24.1-38.0)
[2020-04-12 11:21] LABS: Lactic Acid 1.5 mmol/L (0.5-2.0)
[2020-04-12 11:28] LABS: Albumin Level 2.7 g/dL (3.5-5.0); Alkaline Phosphatase 72 U/L (39-117); Anion Gap 20 (12-20); Aspartate Amino Transferase 20 U/L (5-31); Bilirubin Direct 0.3 mg/dL (0.0-0.5); Bilirubin Total 0.4 mg/dL (0.0-1.0); Blood Urea Nitrogen 8 mg/dL (9-16); Calcium 8.1 mg/dL (8.4-10.2); Carbon Dioxide 23 mmol/L (22-29); Chloride 96 mmol/L (96-108); Creatinine Clr Calc Pharmacy 44.5; Estimated Glomerular Filt Rate 49; Glucose Random 115 mg/dL (60-115); Lipase 26 U/L (8-78); Potassium 3.6 mmol/l (3.3-5.1); Sodium 135 mmol/L (135-145); Total Protein 5.7 g/dL (6.5-8.0)
[2020-04-12 11:30] LABS: B Type Natriuretic Peptide 120 pg/mL (<100); Troponin-I High Sensitivity 16.4 ng/L (<3.5-17.0)
[2020-04-12 11:40] LABS: Alanine Aminotransferase 6 U/L (0-31)
[2020-04-12 11:45] LABS: Procalcitonin 0.72 ng/mL
[2020-04-12 11:48] LABS: Magnesium 1.2 mg/dL (1.6-2.6)
[2020-04-12 12:07] LABS: Glucose Urine UA NEG (NEG); Leukocyte Esterase Urine NEG (NEG); Nitrite Urine NEG (NEG); PH 5.5 (5.0-8.0); Specific Gravity - Urine >= 1.030 (1.005-1.025); Urine Blood NEG (NEG); Urine Ketones 15 MG/DL (NEG); Urine Protein TRACE MG/DL (NEG-TRACE)
[2020-04-12] MEDS: Magnesium Sulfate/H2O 2 GM/50 ML PIGGYBACK IV (12:07)
[2020-04-12 12:14] VITALS: BP 124/40; PULSE 105; RESP 22; TEMP 39.1; O2SAT 99
[2020-04-12 12:17] LABS: Appearance Urine HAZY; Color Urine YELLOW
--- NOTE | 2020-04-12 12:25 | CT_ITS ---
EXAMINATION: CT CHEST, ABDOMEN AND PELVIS WITH CONTRAST CLINICAL INFORMATION: Fevers and abdominal pain COMPARISON: No pertinent prior studies are available for comparison. TECHNIQUE: Multidetector volumetric imaging was performed from the thoracic inlet through the pubic symphysis performed without oral or IV contrast. Sagittal and coronal reformatted images were obtained on the technologist workstation. DLP: 942 mGy-cm. FINDINGS: CHEST: Lungs: There are a few sub-4 mm densities seen bilaterally. Central airways are patent. No significant bronchial wall thickening or bronchiectasis identified. No confluent parenchymal disease is seen. There is some bibasilar atelectasis. Within the superior segment of the left lower lobe posteriorly there is a subpleural density measuring 8 mm in diameter without calcification. This may be related to rounded atelectasis however mass of other etiology not excluded. Mediastinum: The thyroid gland appears unremarkable. Heart normal size. No pericardial effusion. Coronary artery calcification is seen. Mild aortic and mitral valve calcifications present. There is large amount of calcified plaque seen within the aortic arch with plaque extending into the origin of the arch vessels. No thoracic aortic aneurysm. No mediastinal or hilar lymphadenopathy appreciated. Pleura: There are minimal pleural effusions present bilaterally right greater than left. Chest Wall/Axilla: Unremarkable. ABDOMEN/PELVIS: Liver, Gallbladder, Biliary Tree: The liver is normal in size, shape, and attenuation. No focal hepatic lesion or biliary ductal dilatation is present. The gallbladder is unremarkable with no evidence of radiopaque gallstones, gallbladder wall thickening, or pericholecystic inflammatory changes. Pancreas: Unremarkable. Spleen: Prominent at approximately 13 cm in vertical span. No focal mass. Adrenal Glands: The left adrenal gland is enlarged measuring approximately 2.8 x 2.5 x 4.1 cm in size. There is an approximately 1.3 cm right adrenal gland nodule. Kidneys and Ureters: The kidneys are normal in size, shape, and attenuation. No hydronephrosis or hydroureter or collecting system calculi seen. Arterial vascular calcifications are seen within both kidneys. There is perinephric stranding seen bilaterally. Bladder: Decompressed. Gastrointestinal Tract: No dilatation of large or small bowel seen. No free abdominal air. There is prominent presacral edema/fluid without gas. No evidence of acute diverticulitis. No evidence of acute appendicitis. No inflammatory change about the colon is seen to suggest colitis. Abdominal Wall: No hernia is demonstrated. Lymph Nodes: No lymphadenopathy identified. Vascular: Prominent arterial vascular calcification is present. No abdominal aortic aneurysm. Pelvic Viscera: No suspicious mass. Presacral fluid/edema Osseous Structures: No suspicious destructive bony lesion identified. Osteopenia. Superior compression fracture L1 which is age indeterminate. Facet arthropathy L5-S1 most significant on the right. IMPRESSION: 8 mm subpleural lung nodule left lower lobe. Prominent adrenal glands with the left adrenal gland measuring 2.8 x 2.5 x 4.1 cm in size and with a 1.3 cm adrenal gland nodule. MRI may be of help in further evaluation of the left adrenal enlargement/mass. L1 superior endplate compression fracture with approximately 50% loss of height. Prominent arterial calcification. According to the UPDATED 2017 Fleischner Society recommendations, the advised follow-up imaging for a single solid nodule measuring 8 mm or greater is: Consider CT, PET/CT, or tissue sampling at 3 months.
[2020-04-12 12:34] LABS: Mucus Urine 1+ /LPF; RBC Urine 0-2 /HPF (0); Squamous Epithelial Cell Urine 1+ /LPF; WBC Urine 0-2 /HPF (0-4); White Blood Cell Casts Urine 0-2 /LPF
[2020-04-12 13:05] VITALS: BP 123/45; PULSE 104; RESP 26; TEMP 36.9
--- NOTE | 2020-04-12 13:26 | PC.NURSE ---
pt now alert and oriented x4, speaking in full clear sentences. provider aware. hospitalist at bedside for eval. pt tolerating po ice chips w/o issue.
[2020-04-12 14:09] LABS: SARS COV2 PCR INHOUSE NEGATIVE (Negative)
--- NOTE | 2020-04-12 14:38 | PC.NURSE ---
pt report given to c paul man
[2020-04-12 15:20] LABS: Adenovirus PCR Not Detected (Not Detect.); Bordetella parapertussis PCR Not Detected (Not Detect.); Bordetella pertussis PCR Not Detected (Not Detect.); Chlamydia pneumoniae PCR Not Detected (Not Detect.); Coronavirus 229E PCR Not Detected (Not Detect.); Coronavirus HKU1 PCR Not Detected (Not Detect.); Coronavirus NL63 PCR Not Detected (Not Detect.); Coronavirus OC43 PCR Not Detected (Not Detect.); Human metapneumovirus PCR Not Detected (Not Detect.); Influenza A PCR Not Detected (Not Detect.); Influenza B PCR Not Detected (Not Detect.); Mycoplasma pneumoniae PCR Not Detected (Not Detect.); Parainfluenza 1 PCR Not Detected (Not Detect.); Parainfluenza 2 PCR Not Detected (Not Detect.); Parainfluenza 3 PCR Not Detected (Not Detect.); Parainfluenza 4 PCR Not Detected (Not Detect.); RSV PCR Not Detected (Not Detect.); Rhino/Enterovirus PCR Not Detected (Not Detect.); SARS-CoV-2 PCR Not Detected (Not Detect.)
--- NOTE | 2020-04-12 15:50 | P.HPIM_ITS ---
History of Present Illness Date of Service: 04/12/20 Chief Complaint: fever altered mental status 69-year-old female recently discharged from [facility] with fall and weakness found to have small subarachnoid hemorrhage and discharged to short- term rehab, patient was sent from facility with worsening confusion lethargic and fever, in the ER patient found to have fever of 104, CT head on admission shows previous bleed unchanged, UA did not show significant abnormality, chest x-ray shows no acute infiltrates, CT abdomen shows no acute abnormality, patient was given 1 dose of cefepime, no clear source of infection was found, repeat COVID done in the ER was negative, patient seen and examined at bedside, patient was more awake and alert now denies any cough shortness of breath diarrhea nausea vomiting, reported weakness Review of Systems Constitutional: Constitutional: Reports fever(s) Cardiovascular: Cardiovascular: Denies chest pain and Denies dyspnea Respiratory: Respiratory: Denies cough and Denies dyspnea Gastrointestinal: Gastrointestinal: Denies vomiting Musculoskeletal: Musculoskeletal: Reports no additional musculoskeletal complaints Neurologic: Reports system reviewed and no additional complaints, except as documented [facility] Medical History Atrial fibrillation Atrial fibrillation Chronic pericarditis Diabetes Diabetes mellitus, type 2 Diffuse large B cell lymphoma Gait instability Head injury Hypertension Lymphoma Functional capacity: uses cane/walker Family History (Updated 04/12/20 @ 16:06 by Aditya Olmedo MD) Other Hypertension Surgical History Surgical history unknown Social History Alcohol intake: never Smoking Status: Smoker, status unknown Use of substances other than those prescribed or required for medical reasons: Unknown Advance Directives: Yes Advance Directives Information Provided: Yes Advance Directives on File: No service: No Meds Allergies Allergy/AdvReac Type Severity Reaction Status Date / Time colchicine Allergy Unknown Verified 04/07/20 19:29 Home Medications Medication Instructions Recorded Confirmed Type atorvastatin 40 mg PO BEDTIME 04/08/20 04/12/20 History diltiazem HCl 120 mg PO DAILY 04/08/20 04/12/20 History melatonin 3 mg PO BEDTIME 04/08/20 04/12/20 History metformin 1,000 tab PO BIDWMEAL 04/08/20 04/12/20 History metoprolol succinate 150 mg PO DAILY 04/08/20 04/12/20 History pantoprazole [Protonix] 40 mg PO DAILY@0600 04/08/20 04/12/20 History Physical Exam Vital Signs and Narrative: Vital Signs: Last Vital Signs Temp 98.5 F 04/12/20 13:05 Pulse 104 H 04/12/20 13:05 Resp 26 H 04/12/20 13:05 BP 123/45 L 04/12/20 13:05 Pulse Ox 99 04/12/20 12:14 Body Mass Index 24.9 Const: General: no acute distress Neck: Yes normal visual inspection Resp: Effort & Inspection: normal respiratory effort Auscultation: no crackles and no rales Cardio: Jugular venous distension: no JVD Rate: regular rate GI: Inspection: Yes normal to inspection Palpation (GI): nontender Auscultation: normal bowel sounds Skin: General skin exam: no rashes or lesions noted Results Labs Labs: Laboratory Tests 04/12/20 04/12/20 04/12/20 10:45 10:45 10:45 WBC 5.3 RBC 3.01 L Hgb 8.3 L Hct 26.1 L MCV 86.7 MCH 27.6 MCHC 31.8 RDW 17.3 H Plt Count 112 L MPV 9.9 Immature Gran % (Auto) 0.8 H Neut % (Auto) 73.7 H Lymph % (Auto) 13.[address] [place] % (Auto) 11.4 H Eos % (Auto) 0.4 Baso % (Auto) 0.2 Lymph # (Auto) 0.[address] [place] # (Auto) 0.6 Eos # (Auto) 0.0 Baso # (Auto) 0.0 Abs Immat Gran (auto) 0.04 H Absolute Neuts (auto) 3.9 Absolute Nucleated RBC 0.000 Nucleated RBC % (auto) 0.0 PT INR APTT VBG pH VBG pCO2 VBG Oxygen Liters/Min VBG pO2 VBG HCO3 VBG O2 Saturation VBG Base Excess Sodium 135 Potassium 3.6 Chloride 96 Carbon Dioxide 23 Anion Gap 20 BUN 8 L Creatinine 1.10 Estim Creat Clear Calc 44.5 Estimated GFR 49 Random Glucose 115 Lactic Acid 1.5 Calcium 8.1 L Magnesium Total Bilirubin 0.4 Direct Bilirubin 0.3 AST 20 ALT 6 Alkaline Phosphatase 72 Troponin I High Sens B-Natriuretic Peptide Total Protein 5.7 L Albumin 2.7 L Lipase 26 Procalcitonin Urine Color Urine Appearance Urine pH Ur Specific [place] Urine Protein Urine Glucose (UA) Urine Ketones Urine Blood Urine Nitrite Ur Leukocyte Esterase Urine RBC Urine WBC Ur Squamous Epith Cells Urine Bacteria WBC Casts Urine Mucus Coronavirus (PCR) 04/12/20 04/12/20 04/12/20 10:45 10:45 10:45 WBC RBC Hgb Hct MCV MCH MCHC RDW Plt Count MPV Immature Gran % (Auto) Neut % (Auto) Lymph % (Auto) [place] % (Auto) Eos % (Auto) Baso % (Auto) Lymph # (Auto) [place] # (Auto) Eos # (Auto) Baso # (Auto) Abs Immat Gran (auto) Absolute Neuts (auto) Absolute Nucleated RBC Nucleated RBC % (auto) PT 22.0 H INR 1.8 H APTT 39.7 H VBG pH VBG pCO2 VBG Oxygen Liters/Min VBG pO2 VBG HCO3 VBG O2 Saturation VBG Base Excess Sodium Potassium Chloride Carbon Dioxide Anion Gap BUN Creatinine Estim Creat Clear Calc Estimated GFR Random Glucose Lactic Acid Calcium Magnesium Total Bilirubin Direct Bilirubin AST ALT Alkaline Phosphatase Troponin I High Sens 16.4 B-Natriuretic Peptide 120 H Total Protein Albumin Lipase Procalcitonin Urine Color Urine Appearance Urine pH Ur Specific [place] Urine Protein Urine Glucose (UA) Urine Ketones Urine Blood Urine Nitrite Ur Leukocyte Esterase Urine RBC Urine WBC Ur Squamous Epith Cells Urine Bacteria WBC Casts Urine Mucus Coronavirus (PCR) 04/12/20 04/12/20 04/12/20 10:45 10:46 10:46 WBC RBC Hgb Hct MCV MCH MCHC RDW Plt Count MPV Immature Gran % (Auto) Neut % (Auto) Lymph % (Auto) [place] % (Auto) Eos % (Auto) Baso % (Auto) Lymph # (Auto) [place] # (Auto) Eos # (Auto) Baso # (Auto) Abs Immat Gran (auto) Absolute Neuts (auto) Absolute Nucleated RBC Nucleated RBC % (auto) PT INR APTT VBG pH 7.33 VBG pCO2 46 VBG Oxygen Liters/Min TNP VBG pO2 43 VBG HCO3 24 VBG O2 Saturation 73.0 VBG Base Excess -2.1 Sodium Potassium Chloride Carbon Dioxide Anion Gap BUN Creatinine Estim Creat Clear Calc Estimated GFR Random Glucose Lactic Acid Calcium Magnesium 1.2 L* Total Bilirubin Direct Bilirubin AST ALT Alkaline Phosphatase Troponin I High Sens B-Natriuretic Peptide Total Protein Albumin Lipase Procalcitonin 0.72 Urine Color Urine Appearance Urine pH Ur Specific [place] Urine Protein Urine Glucose (UA) Urine Ketones Urine Blood Urine Nitrite Ur Leukocyte Esterase Urine RBC Urine WBC Ur Squamous Epith Cells Urine Bacteria WBC Casts Urine Mucus Coronavirus (PCR) 04/12/20 04/12/20 11:52 12:11 WBC RBC Hgb Hct MCV MCH MCHC RDW Plt Count MPV Immature Gran % (Auto) Neut % (Auto) Lymph % (Auto) [place] % (Auto) Eos % (Auto) Baso % (Auto) Lymph # (Auto) [place] # (Auto) Eos # (Auto) Baso # (Auto) Abs Immat Gran (auto) Absolute Neuts (auto) Absolute Nucleated RBC Nucleated RBC % (auto) PT INR APTT VBG pH VBG pCO2 VBG Oxygen Liters/Min VBG pO2 VBG HCO3 VBG O2 Saturation VBG Base Excess Sodium Potassium Chloride Carbon Dioxide Anion Gap BUN Creatinine Estim Creat Clear Calc Estimated GFR Random Glucose Lactic Acid Calcium Magnesium Total Bilirubin Direct Bilirubin AST ALT Alkaline Phosphatase Troponin I High Sens B-Natriuretic Peptide Total Protein Albumin Lipase Procalcitonin Urine Color YELLOW Urine Appearance HAZY Urine pH 5.5 Ur Specific [place] >= 1.030 H Urine Protein TRACE Urine Glucose (UA) NEG Urine Ketones 15 Urine Blood NEG Urine Nitrite NEG Ur Leukocyte Esterase NEG Urine RBC 0-2 Urine WBC 0-2 Ur Squamous Epith Cells 1+ Urine Bacteria NONE WBC Casts 0-2 Urine Mucus 1+ Coronavirus (PCR) NEGATIVE Assessment and Plan (1) Fever: Qualifiers: Fever type: unspecified Qualified Code(s): R50.9 - Fever, unspecified Status: Acute (2) Altered mental status: Qualifiers: Altered mental status type: unspecified Qualified Code(s): R41.82 - Altered mental status, unspecified Status: Acute (3) Hypomagnesemia: Status: Acute (4) Generalized weakness: Status: Acute (5) Diabetes mellitus, type 2: Status: Acute (6) Chronic subdural hematoma: Status: Acute 69-year-old female recently discharged from [facility] with falls weakness and subarachnoid hemorrhage to short-term rehab , presented with fever and confusion, CT head on admission shows stable small subarachnoid bleed , patient found to have fever of 104 on admission, UA and chest x-ray shows no acute abnormality SIRS presented with fever and tachycardia, source not clear yet rule out viral infection COVID PCR negative UA and chest x-ray shows no acute abnormality CT abdomen shows no acute abnormality continue IV antibiotic for now follow-up urine and blood culture will check respiratory panel continue supportive care continue IV fluids Toxic metabolic encephalopathy secondary to SIRS monitor mental status Atrial fibrillation continue Cardizem and Lopressor anticoagulants on hold given recent subarachnoid bleed Diabetes mellitus on metformin and start sliding scale insulin monitor blood glucose DVT prophylaxis Venodyne boot given recent subarachnoid bleed
[2020-04-12] MEDS: cefTRIAXone sodium 1 GM in 0.9 % Sodium Chloride 50 ML IV (16:53)
[2020-04-12] MEDS: 0.9 % Sodium Chloride 1,000 ML 100 ML IVCONT (16:53)
[2020-04-12] MEDS: 0.9 % Sodium Chloride Flush 3 ML SYRINGE IVFLUSH (16:53)
[2020-04-12 19:17] VITALS: BP 146/66; PULSE 103; RESP 18; TEMP 36.6; O2SAT 95
[2020-04-12 19:38] VITALS: BP 146/66; PULSE 103; RESP 18; TEMP 36.6; O2SAT 95
[2020-04-12 20:54] LABS: Glucose, Whole Blood 74 mg/dL (60-115)
[2020-04-13] VITALS (8 sets, daily range): BP systolic 118–187; BP diastolic 51–84; PULSE 75–105; RESP 18–24; TEMP 36.4–38.6; O2SAT 91–99
--- NOTE | 2020-04-13 | MR_ITS ---
EXAMINATION: MR BRAIN WITHOUT AND WITH CONTRAST CLINICAL INFORMATION: Fever. Confusion. Concern for meningitis. COMPARISON: Head CT from 04/12/2020 and 04/07/2020. TECHNIQUE: MRI of the brain was obtained using routine sequences without and with contrast following the administration of 7 mL of Gadavist intravenous contrast. FINDINGS: Susceptibility artifact associated with a small volume right posterior subdural hematoma as well as small volume subarachnoid hemorrhagic products noted along the right greater than left parietal occipital lobes. These blood products demonstrate inherent T1 shortening. Mild diffuse right greater than left pachymeningeal thickening/enhancement. No abnormal leptomeningeal enhancement. There is also an enhancing extra-axial nodule along the left posterior vertex, measuring 1.2 x 1.1 x 0.6 cm. No additional abnormal intracranial enhancement. No focal restricted diffusion is demonstrated to suggest acute or subacute cerebral ischemia. Basal ganglia mineralization. Scattered periventricular, deep white matter, and brainstem T2 FLAIR hyperintensities consistent with mild to moderate underlying microangiopathy. The ventricles are normal in morphology and size. The cerebellar tonsils are normally positioned. No midline shift. Normal appearance of the pituitary gland. Normal arterial and venous vascular flow voids are present. No additional abnormal contrast enhancement. Heterogeneous marrow signal without definitive focal enhancing lesions. Changes of right-sided endoscopic sinonasal surgery. Near complete opacification of the sphenoid sinus. Otherwise, mild mucosal thickening of the remaining paranasal sinuses. No signal abnormalities within the mastoids. MR/MR head/brain wo/w con IMPRESSION: 1. Redemonstrated small volume right posterior subdural hematoma and small volume right greater than left subarachnoid hemorrhagic products. Mild right greater than left smooth pachymeningeal thickening/enhancement. This is nonspecific and may be secondary to the aforementioned intracranial hemorrhagic products. However, other causes of meningitis could have a similar appearance. Correlation with CSF sampling may help further characterize. The pachymeningeal enhancement does not appear distinctly pronounced surrounding the right-sided posterior collection argues that this represents an aseptic hematoma rather than an empyema. No leptomeningeal enhancement. 2. There is a 1.2 cm extra-axial mass along the left posterior vertex that in the absence of known underlying malignancy likely represents a meningioma. Follow-up is recommended to ensure stability. 3. Changes of prior sinonasal surgery. Prominent sphenoid sinusitis.
[2020-04-13 02:38] LABS: Glucose, Whole Blood 72 mg/dL (60-115)
[2020-04-13] MEDS: 0.9 % Sodium Chloride 1,000 ML 100 ML IVCONT (03:31)
[2020-04-13 06:36] LABS: Basophils Percent Auto 0.3 % (0-2); Eosinophils Percent Auto 0.5 % (0-4); Hematocrit 23.1 % (37-47); Hemoglobin 7.3 g/dl (12.0-16.0); Imm Gran Abs Auto 0.03 X10*3/uL (0.00-0.03); Imm Gran Pct Auto 0.8 % (0.0-0.4); Lymphocytes Absolute Auto 0.5 X10*3/uL (1.2-4.9); Lymphocytes Percent Auto 12.7 % (20-40); MANUAL DIFF FLAG SCAN; Mean Corpuscular HGB Conc 31.6 g/dl (31.0-35.0); Mean Corpuscular Hemoglobin 27.2 pg (27.0-33.0); Mean Corpuscular Volume 86.2 fL (80-98); Monocytes Absolute Auto 0.6 X10*3/uL (0.1-1.2); Monocytes Percent Auto 14.5 % (2-11); Neutrophils Absolute Auto 2.7 X10*3/uL (2.0-8.3); Neutrophils Percent Auto 71.2 % (45-73); Red Blood Count 2.68 X10*6/uL (4.20-5.50); Red Cell Distribution Width 17.8 % (11.0-16.0); SCAN SMEAR FLAG 1; White Blood Count 3.8 X10*3/uL (4.8-10.8)
[2020-04-13 07:01] LABS: Magnesium 1.6 mg/dL (1.6-2.6)
[2020-04-13 07:03] LABS: Anion Gap 16 (12-20); Blood Urea Nitrogen 8 mg/dL (9-16); Calcium 7.4 mg/dL (8.4-10.2); Carbon Dioxide 21 mmol/L (22-29); Chloride 100 mmol/L (96-108); Creatinine Clr Calc Pharmacy 62.8; Estimated Glomerular Filt Rate > 60; Glucose Random 72 mg/dL (60-115); Potassium 3.4 mmol/l (3.3-5.1); Sodium 134 mmol/L (135-145)
[2020-04-13 07:14] LABS: Platelet Count 99 X10*3/uL (160-400)
[2020-04-13 07:59] LABS: SLIDE REVIEW VERIFIED
[2020-04-13 08:03] LABS: Glucose, Whole Blood 68 mg/dL (60-115)
[2020-04-13] MEDS: dilTIAZem HCL CD 120 MG CAP.ER.DEG PO (08:54)
[2020-04-13] MEDS: 0.9 % Sodium Chloride Flush 3 ML SYRINGE IVFLUSH ×2 (08:54→17:11)
[2020-04-13] MEDS: Metoprolol Succinate ER 50 MG TAB.ER.24H 150 MG PO (08:54)
--- NOTE | 2020-04-13 11:43 | MHC.CLN ---
WILL START GLUCERNA BETWEEN MEALS TO INCREASE KCALS R/T POOR PO DISCUSSED DURING MDRs
[2020-04-13 11:48] LABS: Glucose, Whole Blood 66 mg/dL (60-115)
[2020-04-13] MEDS: Dextrose 5 % and 0.9 % NaCl 1,000 ML 100 ML IVCONT (12:14)
--- NOTE | 2020-04-13 13:06 | HO.PM.IMPN ---
Subjective Subjective Date of Service: 04/13/20 Interval History: Patient seen and examined at bedside patient was alert and awake answering questions appropriately in the morning, patient spiked fever again in the afternoon patient became more confused and lethargic not following commands mental status worsening Constitutional Constitutional: Reports weakness Cardiovascular Cardiovascular: Denies dyspnea Respiratory Respiratory: Denies cough and Denies dyspnea Gastrointestinal Gastrointestinal: Denies vomiting Neurologic Neurologic: Reports confusion and Reports weakness Psychiatric Psychiatric: Reports confusion Physical Exam Vital Signs: Vital Signs: Vital Signs Temp Pulse Resp BP Pulse Ox 04/13/20 12:00 101.5 F H 97 24 H 118/69 96 04/13/20 08:54 105 H 140/65 H 04/13/20 07:02 99.3 F 105 H 20 140/65 H 99 04/13/20 03:39 97.6 F 105 H 20 140/67 H 93 04/13/20 00:00 98.8 F 104 H 20 132/64 93 04/12/20 19:38 97.9 F 103 H 18 146/66 H 95 04/12/20 19:17 97.9 F 103 H 18 146/66 H 95 Body Mass Index 24.9 Const: General: confusion, ill appearing, lethargic and tired appearing Orientation/consciousness: confusion and lethargic Neck: Neck: Yes normal visual inspection Resp: Effort & Inspection: normal respiratory effort Auscultation: no crackles and no rales Cardio: Jugular venous distension: no JVD Rate: regular rate GI: Inspection: Yes normal to inspection Palpation (GI): nontender Auscultation: normal bowel sounds Skin: General skin exam: no rashes or lesions noted Neuro: General: confusion Motor exam (neuro): 5/5 motor strength present throughout Objective Data Current Medications Generic Name Dose Route Start Last Admin Trade Name Freq PRN Reason Stop Dose Admin Atorvastatin Calcium 40 mg 04/12/20 21:00 04/12/20 21:22 Atorvastatin Calcium 40 Mg Tablet PO Not Given BEDTIME AXEL Diltiazem HCl 120 mg 04/13/20 09:00 04/13/20 08:54 Diltiazem Hcl Cd 120 Mg Cap.Er.Deg PO 120 mg DAILY AXEL Administration Protocol Ceftriaxone Sodium 1 gm/ 50 mls @ 100 mls/hr 04/12/20 16:13 04/12/20 17:43 Sodium Chloride IV Infused Q24H AXEL Infusion Dextrose/Sodium Chloride 1,000 mls @ 100 mls/hr 04/13/20 12:15 04/13/20 12:14 D5ns IVCONT 100 mls/hr .Q10H AXEL Administration Insulin Human Lispro 0 unit 04/12/20 21:00 04/13/20 12:13 Insulin Lispro 100 Unit/Ml 3 Ml Vial SUBCUT Not Given QIDACHS [facility] Protocol Melatonin 3 mg 04/12/20 21:00 04/12/20 21:18 Melatonin 3 Mg Tablet PO Not Given BEDTIME [facility] Metoprolol Succinate 150 mg 04/13/20 09:00 04/13/20 08:54 Metoprolol Succinate Er 50 Mg Tab.Er.24h PO 150 mg DAILY AXEL Administration Protocol Pharmacy Consult 1 each 04/12/20 10:28 Consult Rx Perform Med Rec MISCELLANE ONCE PRN Consult order Sodium Chloride 3 ml 04/12/20 16:13 04/13/20 08:54 0.9 % Sodium Chloride Flush 3 Ml Syringe IVFLUSH 3 ml QSHIFT AXEL Administration Labs CBC & Chem 7: 04/14/20 Unknown 04/14/20 Unknown Microbiology Microbiology Results: Microbiology 04/12/20 10:46 Blood - Venous Blood Culture - Preliminary No growth after 24 hours. 04/12/20 10:46 Blood - Venous Blood Culture - Preliminary No growth after 24 hours. Assessment and Plan (1) Fever: Status: Acute (2) Altered mental status: Status: Acute (3) Hypomagnesemia: Status: Acute (4) Generalized weakness: Status: Acute (5) Diabetes mellitus, type 2: Status: Acute (6) Chronic subdural hematoma: Status: Acute Assessment and Plan: 69-year-old female recently discharged from [facility] with falls weakness and subarachnoid hemorrhage to short-term rehab , presented with fever and confusion, CT head on admission shows stable small subarachnoid bleed , patient found to have fever of 104 on admission, UA and chest x-ray shows no acute abnormality SIRS presented with fever and tachycardia, and confusion ,source not clear yet rule out viral infection vs menigitis COVID PCR negative UA and chest x-ray shows no acute abnormality CT abdomen shows no acute abnormality Discussed with ID unable to do LP as patient INR still 1.8, will give vitamin K and attempt LP in the morning continue Rocephin, Will start on vancomycin and acyclovir for possible meningitis neurology consult requested id recommending MRI brain with contrast ordered CT head done yesterday shows stable bleed follow-up culture respiratory panel negative continue supportive care continue IV fluids Toxic metabolic encephalopathy secondary to SIRS r/o meningitis monitor mental status closely Atrial fibrillation continue Cardizem and Lopressor anticoagulants on hold given recent subarachnoid bleed acute on chronic anemia no active bleeding hemoglobin dropped from 8-7.2 Will check stool for occult blood will transfuse 1 unit of PRBCs monitor CBC Diabetes mellitus on metformin at home hold metformin hold insulin as blood glucose low monitor blood glucose DVT prophylaxis Venodyne boot given recent subarachnoid bleed and anemia discussed with healthcare proxy at bedside as patient is confused and not competent to make her decisions, healthcare proxy has conformed patient DNR DNI, healthcare proxy brought paperwork signed by patient is DNR DNI, family wants to try pressors patient became hypotensive
[2020-04-13 13:34] LABS: C Reactive Protein 21.66 mg/dL (< or = 0.50); Lactate Dehydrogenase 954 U/L (122-220)
[2020-04-13] MEDS: Acetaminophen 325 MG TABLET 650 MG PO (13:40)
--- NOTE | 2020-04-13 13:41 | MHC.CM.PN ---
SUPERVISING APPRAISER completed with pt who reports she lives alone and had no services prior to her last admission. Pt reports prior to that admission she was independent with care and mobility. Pt was discharged to [facility] following her recent [facility] admission and reports she hopes to return there upon discharge. CM spoke to pts HCP, Ethel Roldan ([phone]) as well. She requests she be informed when pt is going to DC. IMM delivered and current DC plan is to return to [facility] pending bed availability pt will need BLS vs chair van.
[2020-04-13 13:55] LABS: Glucose, Whole Blood 92 mg/dL (60-115)
[2020-04-13 14:18] LABS: INTERNATIONAL NORM RATIO 1.8 (0.9-1.1); Prothrombin Time 21.6 SEC (10.8-13.0)
[2020-04-13 14:22] LABS: D Dimer 660 NG/ML
[2020-04-13 14:43] LABS: Ferritin 2649 ng/mL (10-250)
[2020-04-13 16:22] LABS: Glucose, Whole Blood 124 mg/dL (60-115)
--- NOTE | 2020-04-13 16:42 | PM.NEUROCN ---
History of Present Illness Data of Consult Primary Care Provider: Smith Crowell MD 69 y/o woman with recent traumatic small right parietal SDH was brought back from rehab due to change in mental status. Repeat imaging did not reveal any worsening. She said that she was sick for a month. No seizure noted. No focal stroke like symptoms. She denied any headache or neck pain. Review of Systems Review of Systems: General: no loss of weight, Neuro: no active issue reported Psych: no active issues reported Heart: no SOB or chest pain Lungs: no cough or SOB Extremiteis: no edema Musculoskeletal: no joint pains Sleep: no sleep issues reported skin: flushed face ENT: no URI symptoms Neck: no neck pain Constitutional: Constitutional: Reports weakness Neurologic: Reports system reviewed and no additional complaints, except as documented, Reports confusion and Reports weakness Psychiatric: Psychiatric: Reports confusion PMFSH Past Medical History Medical History Atrial fibrillation Atrial fibrillation Chronic pericarditis Diabetes Diabetes mellitus, type 2 Diffuse large B cell lymphoma Gait instability Head injury Hypertension Lymphoma Functional capacity: uses cane/walker Family History Family History (Updated 04/12/20 @ 16:06 by Aditya Olmedo MD) Other Hypertension Surgical History Surgical History Surgical history unknown Social History Social History Household Members: Other Housing: [facility] Alcohol intake: never Smoking Status: Smoker, status unknown Use of substances other than those prescribed or required for medical reasons: No Currently Displaying Signs/Symptoms of Drug Intoxication Withdrawal: No Have you been hit, kicked, punched, or otherwise hurt by someone within the past year? If so, by whom?: No Do you feel safe in your current relationship?: No Current Relationship Is there a partner from a previous relationship who is making you feel unsafe now?: No Are you made to feel afraid or neglected: No Advance Directives: Yes Advance Directives Information Provided: Yes Advance Directives on File: No Advance Directives Date on File: 04/12/20 Do you have thoughts of harming others: None Do you have a plan to hurt others: No Plan Recently lost weight without trying: No service: No Current occupational status: retired Meds Allergies Allergy/AdvReac Type Severity Reaction Status Date / Time colchicine Allergy Unknown Verified 04/07/20 19:29 Home Medications Medication Instructions Recorded Confirmed Type atorvastatin 40 mg PO BEDTIME 04/08/20 04/12/20 History diltiazem HCl 120 mg PO DAILY 04/08/20 04/12/20 History melatonin 3 mg PO BEDTIME 04/08/20 04/12/20 History metformin 1,000 tab PO BIDWMEAL 04/08/20 04/12/20 History metoprolol succinate 150 mg PO DAILY 04/08/20 04/12/20 History pantoprazole [Protonix] 40 mg PO DAILY@0600 04/08/20 04/12/20 History Physical Exam Vital Signs: Vital Signs: Vital Signs Temp Pulse Resp BP Pulse Ox 04/13/20 15:54 98.8 F 87 20 128/51 L 94 04/13/20 12:00 101.5 F H 97 24 H 118/69 96 04/13/20 08:54 105 H 140/65 H 04/13/20 07:02 99.3 F 105 H 20 140/65 H 99 04/13/20 03:39 97.6 F 105 H 20 140/67 H 93 04/13/20 00:00 98.8 F 104 H 20 132/64 93 04/12/20 19:38 97.9 F 103 H 18 146/66 H 95 04/12/20 19:17 97.9 F 103 H 18 146/66 H 95 Body Mass Index 24.9 Mental status examination: Alert and awake able to answer simple questions, normal language. Makes appropriate jokes. Cranial Nerve examination: Pupils are equal, round and reactive to light. External ocular muscles are intact. Visual phillips are full. Face is symmetrical. Facial sensations are normal. Tongue is midline. Palate elevates symmetrically. Shoulder shrugging is normal. Hearing to bedside conversation is normal. Motor examination: DTRs are trace to absent, plantars are flexor. NO focal arm or leg weakness Cerebellar examination: Finger to nose is normal. Speech: Normal. Extrapyramidal system: Within normal limits. Involuntary movements: None. Const: General: confusion Orientation/consciousness: confusion Neuro: General: confusion Results Labs CBC & Chem 7: 04/13/20 05:31 04/13/20 05:31 Labs: Short CBC 10/22/20 Range/Units 05:31 WBC 3.8 L (4.8-10.8) X10*3/uL Hgb 7.3 L (12.0-16.0) g/dl Hct 23.1 L (37-47) % Plt Count 99 L (160-400) X10*3/uL BMP 04/13/20 05:31 Sodium 134 L Potassium 3.4 Chloride 100 Carbon Dioxide 21 L BUN 8 L Creatinine 0.[address] brain WO: somewhat resolution of recent SDH Microbiology Microbiology Results: Microbiology 04/12/20 10:46 Blood - Venous Blood Culture - Preliminary No growth after 24 hours. 04/12/20 10:46 Blood - Venous Blood Culture - Preliminary No growth after 24 hours. Assessment and Plan (1) Altered mental status: Qualifiers: Altered mental status type: unspecified Qualified Code(s): R41.82 - Altered mental status, unspecified Status: Acute Impression: Encephalopathy, likely infectious with pancytopenia. Etiology unclear Rec: If she is not better tomorrow, we may have to consider an LP. Could this still be Covid? I don't know the sensitivity of present COVID test. In any case, I suggest usualy infection work up, and LP if no etilogy is found.
[2020-04-13] MEDS: Phytonadione (Vit K1) 10 MG in 0.9 % Sodium Chloride 50 ML 51 MG IV (17:10)
[2020-04-13] MEDS: cefTRIAXone sodium 2 GM in 0.9 % Sodium Chloride 50 ML IV (17:33)
[2020-04-13] MEDS: vancomycin HCL 1,000 MG in 0.9 % Sodium Chloride 250 ML 270 MG IV (18:42)
[2020-04-13 21:09] LABS: Glucose, Whole Blood 102 mg/dL (60-115)
[2020-04-13 22:47] LABS: Hemoglobin 7.6 g/dl (12.0-16.0); MANUAL DIFF FLAG SCAN; PLT CLUMP 1; SCAN SMEAR FLAG 1
[2020-04-13 22:49] LABS: Basophils Percent Auto 0.3 % (0-2); Eosinophils Absolute Auto 0.1 X10*3/uL (0.0-0.4); Eosinophils Percent Auto 1.3 % (0-4); Hematocrit 24.5 % (37-47); Imm Gran Abs Auto 0.04 X10*3/uL (0.00-0.03); Lymphocytes Absolute Auto 0.5 X10*3/uL (1.2-4.9); Lymphocytes Percent Auto 12.2 % (20-40); Mean Corpuscular Hemoglobin 27.1 pg (27.0-33.0); Mean Corpuscular Volume 87.5 fL (80-98); Mean Platelet Volume 9.8 fL (9.4-12.3); Monocytes Absolute Auto 0.5 X10*3/uL (0.1-1.2); Monocytes Percent Auto 13.2 % (2-11); Neutrophils Absolute Auto 2.8 X10*3/uL (2.0-8.3); Platelet Count 106 X10*3/uL (160-400); Red Cell Distribution Width 17.7 % (11.0-16.0); White Blood Count 3.9 X10*3/uL (4.8-10.8)
[2020-04-13 22:54] LABS: SLIDE REVIEW VERIFIED
[2020-04-14] VITALS (12 sets, daily range): BP systolic 116–187; BP diastolic 49–92; PULSE 45–165; RESP 20–30; TEMP 36.9–39.4; O2SAT 90–95
--- NOTE | 2020-04-14 | FL_ITS ---
EXAMINATION: FLUOROSCOPY-GUIDED LUMBAR PUNCTURE CLINICAL INFORMATION: Fever, confusion. Question meningitis. COMPARISON: None TECHNIQUE: Following explaining procedure, benefits and risk to patient's sister/health proxy by phone in presence of IR nurse, a verbal consent was obtained. Patient was placed in left decubitus position on fluoroscopy table and low back area was cleaned and draped in usual sterile manner. 1% lidocaine was injected at puncture site. Through a small skin incision a 22-gauge 6 inch needle was inserted intrathecally at the L3-L4 disc level on the lateral fluoroscopy. After observing CSF return quick CSF pressure was obtained. Subsequently clear CSF fluid was collected in 3 test tubes. Postprocedure stylet was reintroduced and needle withdrawn. Complete hemostasis was achieved at puncture site. Patient tolerated procedure extremely well. FINDINGS: On lateral fluoroscopy there is loss of L1 and L3 superior endplate height. Rest of vertebral heights and alignment is normal. No visible acute fracture, dislocation or lytic process seen. The opening CSF pressure measured 6. Approximately 6 mL of clear CSF was collected in 3 test tubes. FLUOROSCOPY TIME: 1.7 minutes DOSE AREA PRODUCT: 37.5 uGy-m2 (microgray-meter squared) FL/FL guided lumbar puncture LP IMPRESSION: Successful lateral fluoroscopy-guided lumbar puncture performed.
[2020-04-14] MEDS: Dextrose 5 % and 0.9 % NaCl 1,000 ML 100 ML IVCONT ×3 (01:30→23:28)
[2020-04-14] MEDS: cefTRIAXone sodium 2 GM in 0.9 % Sodium Chloride 50 ML IV ×2 (03:07→15:30)
[2020-04-14] MEDS: vancomycin HCL 750 MG in 0.9 % Sodium Chloride 250 ML 265 MG IV (03:47)
[2020-04-14] MEDS: Acetaminophen Supp 650 MG SUPP.RECT PR ×4 (05:03→23:30)
[2020-04-14 06:44] LABS: INTERNATIONAL NORM RATIO 1.4 (0.9-1.1); Prothrombin Time 17.2 SEC (10.8-13.0)
[2020-04-14 08:05] LABS: Glucose, Whole Blood 166 mg/dL (60-115)
--- NOTE | 2020-04-14 08:30 | XR_ITS ---
EXAMINATION: XR CHEST CLINICAL INFORMATION: Shortness of breath with hypoxia COMPARISON: April 07, [address] of the chest of April 12, 2020 TECHNIQUE: AP portable view of the chest was obtained. FINDINGS: There is some faint groundglass opacity seen at the left base which may be related to atelectasis versus interstitial disease which could be infectious or inflammatory in nature. No confluent airspace disease. Heart normal size. No evidence of pulmonary edema. No pneumothorax or pleural effusion. XR/XR chest 1V IMPRESSION: Minimal interstitial disease left base.
[2020-04-14] MEDS: 0.9 % Sodium Chloride Flush 3 ML SYRINGE IVFLUSH ×2 (09:22→21:19)
[2020-04-14 09:43] LABS: Basophils Percent Auto 0.3 % (0-2); Eosinophils Absolute Auto 0.1 X10*3/uL (0.0-0.4); Eosinophils Percent Auto 1.7 % (0-4); Hematocrit 24.9 % (37-47); Hemoglobin 7.7 g/dl (12.0-16.0); Imm Gran Abs Auto 0.03 X10*3/uL (0.00-0.03); Lymphocytes Absolute Auto 0.4 X10*3/uL (1.2-4.9); Lymphocytes Percent Auto 14.6 % (20-40); MANUAL DIFF FLAG SCAN; Mean Corpuscular HGB Conc 30.9 g/dl (31.0-35.0); Mean Corpuscular Hemoglobin 26.9 pg (27.0-33.0); Mean Corpuscular Volume 87.1 fL (80-98); Mean Platelet Volume 10.4 fL (9.4-12.3); Monocytes Absolute Auto 0.4 X10*3/uL (0.1-1.2); Monocytes Percent Auto 14.9 % (2-11); Neutrophils Absolute Auto 1.9 X10*3/uL (2.0-8.3); Neutrophils Percent Auto 67.5 % (45-73); Red Blood Count 2.86 X10*6/uL (4.20-5.50); Red Cell Distribution Width 17.7 % (11.0-16.0); SCAN SMEAR FLAG 1; White Blood Count 2.9 X10*3/uL (4.8-10.8)
[2020-04-14 09:45] LABS: Platelet Count 93 X10*3/uL (160-400)
[2020-04-14] MEDS: Metoprolol Tartrate 5 MG/5 ML VIAL IVPUSH (10:21)
[2020-04-14 10:44] LABS: Anion Gap 15 (12-20); Blood Urea Nitrogen 6 mg/dL (9-16); Calcium 7.1 mg/dL (8.4-10.2); Carbon Dioxide 22 mmol/L (22-29); Chloride 99 mmol/L (96-108); Creatinine Clr Calc Pharmacy 66.2; Estimated Glomerular Filt Rate > 60; Glucose Random 193 mg/dL (60-115); Potassium 3.3 mmol/l (3.3-5.1); Sodium 133 mmol/L (135-145)
[2020-04-14] MEDS: Albuterol/Iprat 2.5/0.5MG 3 ML AMPUL.NEB INHALE (11:09)
[2020-04-14 11:33] LABS: SLIDE REVIEW VERIFIED
[2020-04-14 11:54] LABS: Glucose, Whole Blood 189 mg/dL (60-115)
--- NOTE | 2020-04-14 12:44 | MHC.CM.PN ---
per rounds no dc date at this time plan remanins return to [facility]
--- NOTE | 2020-04-14 14:11 | HO.PM.IMPN ---
Subjective Subjective Interval History: Patient seen and examined at bedside patient patient continues to spike fever, remains confused, reporting trouble breathing Constitutional Constitutional: Reports fever(s) and Reports weakness Cardiovascular Cardiovascular: Denies chest pain and Reports dyspnea Respiratory Respiratory: Reports dyspnea Gastrointestinal Gastrointestinal: Reports nausea Neurologic Neurologic: Reports confusion, Denies focal weakness and Reports weakness Psychiatric Psychiatric: Reports confusion Physical Exam Vital Signs: Vital Signs: Vital Signs Temp Pulse Resp BP Pulse Ox 04/14/20 11:41 102.9 F H 100 30 H 140/80 H 92 04/14/20 10:21 165 H 116/74 04/14/20 10:06 165 H 25 H 116/74 95 04/14/20 09:33 101.2 F H 04/14/20 08:00 98.9 F 45 L 20 120/52 L 94 04/14/20 03:55 102 F H 90 20 144/50 H 90 L 04/14/20 01:31 140/52 H 04/14/20 00:45 102 F H 04/14/20 00:00 98.5 F 94 20 187/84 H 91 L 04/13/20 19:40 98.3 F 84 20 151/60 H 92 04/13/20 15:54 98.8 F 87 20 128/51 L 94 Body Mass Index 24.9 Const: General: confusion, ill appearing, lethargic and tired appearing Orientation/consciousness: confusion and lethargic Neck: Neck: Yes normal visual inspection Resp: Effort & Inspection: normal respiratory effort Auscultation: no crackles and no rales Cardio: Jugular venous distension: no JVD Rate: regular rate GI: Inspection: Yes normal to inspection Palpation (GI): nontender Auscultation: normal bowel sounds Skin: General skin exam: no rashes or lesions noted Neuro: General: confusion Motor exam (neuro): 5/5 motor strength present throughout Objective Data Current Medications Generic Name Dose Route Start Last Admin Trade Name Freq PRN Reason Stop Dose Admin Acetaminophen 650 mg 04/14/20 09:51 04/14/20 11:35 Acetaminophen Supp 650 Mg Supp.Rect KS 650 mg Q6H PRN Administration Fever Atorvastatin Calcium 40 mg 04/12/20 21:00 04/13/20 21:07 Atorvastatin Calcium 40 Mg Tablet PO Not Given BEDTIME AXEL Dextrose/Sodium Chloride 1,000 mls @ 100 mls/hr 04/13/20 12:15 04/14/20 11:41 D5ns IVCONT 100 mls/hr .Q10H [facility] Administration Ceftriaxone Sodium 2 gm/ 50 mls @ 100 mls/hr 04/13/20 14:15 04/14/20 03:40 Sodium Chloride IV Infused Q12H AX[facility] Infusion Vancomycin HCl 750 mg/ Sodium 265 mls @ 265 mls/hr 04/14/20 03:00 04/14/20 05:06 Chloride IV Infused Q12H [facility] Infusion Acyclovir Sodium 700 mg/ 264 mls @ 264 mls/hr 04/13/20 18:00 04/14/20 11:43 Dextrose IV Infused Q8H [facility] Infusion Insulin Human Lispro 0 unit 04/12/20 21:00 04/14/20 13:18 Insulin Lispro 100 Unit/Ml 3 Ml Vial SUBCUT Not Given QIDACHS [facility] Protocol Magnesium Oxide 400 mg 04/13/20 17:30 04/14/20 09:22 Magnesium Oxide 400 Mg Tablet PO Not Given BIDPC [facility] Melatonin 3 mg 04/12/20 21:00 04/13/20 21:08 Melatonin 3 Mg Tablet PO Not Given BEDTIME [facility] Metoprolol Succinate 150 mg 04/13/20 09:00 04/14/20 09:22 Metoprolol Succinate Er 50 Mg Tab.Er.24h PO Not Given DAILY [facility] Protocol Pharmacy Consult 1 each 04/12/20 10:28 Consult Rx Perform Med Rec MISCELLANE ONCE PRN Consult order Sodium Chloride 3 ml 04/12/20 16:13 04/14/20 09:22 0.9 % Sodium Chloride Flush 3 Ml Syringe IVFLUSH 3 ml QSHIFT [facility] Administration Labs CBC & Chem 7: 04/15/20 08:09 04/15/20 08:09 Microbiology Microbiology Results: Microbiology 04/12/20 10:46 Blood - Venous Blood Culture - Preliminary No growth after 48 hours. 04/12/20 10:46 Blood - Venous Blood Culture - Preliminary No growth after 48 hours. 04/12/20 11:50 Urine clean catch - Clean Catch Midstream Urine Culture - Preliminary No growth to date. Assessment and Plan (1) Fever: Status: Acute (2) Altered mental status: Status: Acute (3) Hypomagnesemia: Status: Acute (4) Generalized weakness: Status: Acute (5) Diabetes mellitus, type 2: Status: Acute (6) Chronic subdural hematoma: Status: Acute Assessment and Plan: 69-year-old female recently discharged from [facility] with falls weakness and subarachnoid hemorrhage to short-term rehab , presented with fever and confusion, CT head on admission shows stable small subarachnoid bleed , patient found to have fever of 104 on admission, UA and chest x-ray shows no acute abnormality Sepsis and confusion ,source not clear yet rule out viral infection vs menigitis COVID PCR negative UA and chest x-ray shows no acute abnormality CT abdomen shows no acute abnormality CT head on admission shows stable subarachnoid bleed MRI brain shows stable subarachnoid bleed and possible meningioma cultures pending respiratory panel negative continue supportive care continue IV fluids started on Vanco Rocephin and acyclovir for possible meningitis continues to spike fever INR 1.4 today plan for lumbar puncture seen by Neurology recommended LP Toxic metabolic encephalopathy secondary to SIRS r/o meningitis monitor mental status closely Atrial fibrillation with RVR heart rate went up to 165 transiently continue IV Lopressor as unable to take p.o. anticoagulants on hold given recent subarachnoid bleed Difficulty swallowing secondary to confusion will keep NPO continue D5 NS acute on chronic anemia no active bleeding hemoglobin dropped from 8-7.2 stool for occult blood pending plan for 1 unit of PRBCs monitor CBC monitor CBC Diabetes mellitus on metformin at home hold metformin hold insulin as blood glucose low monitor blood glucose DVT prophylaxis Venodyne boot given recent subarachnoid bleed and anemia discussed with healthcare proxy at bedside as patient is confused and not competent to make her decisions, healthcare proxy has confirmed patient DNR DNI, healthcare proxy brought paperwork signed by patient is DNR DNI, family wants to try pressors if patient became hypotensive, patient is becoming more lethargic and febrile, discussed with healthcare proxy about poor prognosis
--- NOTE | 2020-04-14 14:51 | HO.RADPN ---
RADIOLOGY Narrative Narrative: Fluoroscopy guided lumbar puncture done at L4-5 disc level without complications.
[2020-04-14 15:16] LABS: Appearance CSF CLEAR; CSF Tube # 2
[2020-04-14 15:32] LABS: Glucose CSF 138 mg/dL; Total Protein CSF 68.6 mg/dL (15-45)
[2020-04-14 15:37] LABS: Appearance CSF CLEAR
[2020-04-14 15:39] LABS: Vancomycin Trough 9.1 mcg/mL (10.0-20.0)
[2020-04-14 15:39] LABS: CSF Tube # 1
[2020-04-14 15:40] LABS: Color CSF COLORLESS; Lymphocytes CSF 100 %; Red Blood Cell CSF 840 MM*3; White Blood Cell CSF 3 MM*3
[2020-04-14 16:12] LABS: Glucose, Whole Blood 190 mg/dL (60-115)
[2020-04-14] MEDS: vancomycin HCL 1,000 MG in 0.9 % Sodium Chloride 250 ML 180 MG IV (17:03)
--- NOTE | 2020-04-14 19:18 | PC.NURSE ---
1000 TWO EPISODES OF SVT UP TO THE 160'S WITH BREAK IN BETWEEN BACK DOWN TO LOW 100'S. PT UNABLE TO TAKE SCHEDULED PO METOPROLOL DUE TO DIFFICULTY SWALLOWING. 5 MG IV LOPRESSOR ORDERED STAT AND GIVEN WITH GOOD EFFECT. CONTINUED TO BE SINUS TACHYCARDIC UP TO 110 THROUGHTOUT DAY.
--- NOTE | 2020-04-14 19:20 | PC.NURSE ---
PERSISTENT FEVERS THROUGHOUT DAY WITH RECTAL TEMPS. GIVEN SD TYLENOL Q6H. COOLING MEASURES COMPLETE. PT DENIES CHILLS. MENTAL STATUS CONTINUED TO FLUCTATE THROUGHOUT DAY. ABLE TO TOLERATE LUMBAR PUNCTURE WITH THIS RN MONITORING.HOSPITALIST MADE AWARE.
--- NOTE | 2020-04-14 19:23 | PC.NURSE ---
BLOOD TRANSFUSION NOT GIVEN TODAY DUE TO PERSISTENT FEVERS.
[2020-04-14] MEDS: Insulin Lispro 100 UNIT/ML 3 ML VIAL SUBCUT (21:18)
--- NOTE | 2020-04-14 21:44 | PC.NURSE ---
POC WAS 195 AT 2100. DOCUMENTED POC WOULD NOT UPLOAD FROM GLUCOMETER TO [employer] FOR UNKNOWN REASON. 2U OF INSULIN GIVEN FOR SAID BLOOD SUGAR.
[2020-04-15] VITALS (11 sets, daily range): BP systolic 118–160; BP diastolic 47–112; PULSE 90–160; RESP 20–22; TEMP 36.4–38.8; O2SAT 92–97
[2020-04-15] MEDS: cefTRIAXone sodium 2 GM in 0.9 % Sodium Chloride 50 ML IV (01:25)
--- NOTE | 2020-04-15 02:29 | PC.NURSE ---
2129 PT HAD A BRIEF EPISODE OF SVT WITH HR IN THE 160'S. RETURNED BACK TO LOW 100'S. ASSESSED PT WHO WAS RESTING COMFORTABLY IN NAD. PROVIDER MADE AWARE. WILL CTM.
[2020-04-15] MEDS: vancomycin HCL 1,000 MG in 0.9 % Sodium Chloride 250 ML 180 MG IV ×2 (03:13→15:10)
[2020-04-15 03:41] LABS: Vancomycin Trough 14.3 mcg/mL (10.0-20.0)
[2020-04-15] MEDS: Insulin Lispro 100 UNIT/ML 3 ML VIAL SUBCUT ×3 (07:49→20:48)
[2020-04-15] MEDS: Acetaminophen Supp 650 MG SUPP.RECT PR (07:52)
[2020-04-15] MEDS: Dextrose 5 % and 0.9 % NaCl 1,000 ML 100 ML IVCONT ×2 (08:23→20:51)
[2020-04-15 09:04] LABS: Glucose, Whole Blood 180 mg/dL (60-115)
[2020-04-15 09:15] LABS: Basophils Percent Auto 0.5 % (0-2); Eosinophils Absolute Auto 0.1 X10*3/uL (0.0-0.4); Eosinophils Percent Auto 3.1 % (0-4); Hematocrit 26.4 % (37-47); Hemoglobin 8.2 g/dl (12.0-16.0); Imm Gran Abs Auto 0.07 X10*3/uL (0.00-0.03); Imm Gran Pct Auto 1.8 % (0.0-0.4); Lymphocytes Absolute Auto 0.5 X10*3/uL (1.2-4.9); Lymphocytes Percent Auto 12.1 % (20-40); MANUAL DIFF FLAG SCAN; Mean Corpuscular HGB Conc 31.1 g/dl (31.0-35.0); Mean Corpuscular Hemoglobin 27.2 pg (27.0-33.0); Mean Corpuscular Volume 87.7 fL (80-98); Mean Platelet Volume 10.3 fL (9.4-12.3); Monocytes Absolute Auto 0.7 X10*3/uL (0.1-1.2); Monocytes Percent Auto 16.7 % (2-11); Neutrophils Absolute Auto 2.6 X10*3/uL (2.0-8.3); Neutrophils Percent Auto 65.8 % (45-73); Red Blood Count 3.01 X10*6/uL (4.20-5.50); Red Cell Distribution Width 17.8 % (11.0-16.0); SCAN SMEAR FLAG 1; White Blood Count 3.9 X10*3/uL (4.8-10.8)
[2020-04-15 09:26] LABS: Platelet Count 68 X10*3/uL (160-400)
[2020-04-15 09:41] LABS: SLIDE REVIEW VERIFIED
[2020-04-15 09:54] LABS: Anion Gap 14 (12-20); Blood Urea Nitrogen 5 mg/dL (9-16); Calcium 7.3 mg/dL (8.4-10.2); Carbon Dioxide 20 mmol/L (22-29); Chloride 103 mmol/L (96-108); Creatinine Clr Calc Pharmacy 60.4; Estimated Glomerular Filt Rate > 60; Glucose Random 233 mg/dL (60-115); Potassium 3.3 mmol/l (3.3-5.1); Sodium 134 mmol/L (135-145)
--- NOTE | 2020-04-15 10:58 | ECG_ITS ---
Test Reason : check qtc Blood Pressure : / mmHG Vent. Rate : 000 BPM Atrial Rate : 000 BPM P-R Int : 000 ms QRS Dur : 000 ms QT Int : 000 ms P-R-T Axes : 000 000 000 degrees QTc Int : 000 ms No QRS complexes found, no ECG analysis possible No previous ECGs available Referred By: Aditya Olmedo Electronically Signed By:
[2020-04-15 11:20] LABS: Glucose, Whole Blood 224 mg/dL (60-115)
--- NOTE | 2020-04-15 11:37 | ECG_ITS ---
Test Reason : check qtc Blood Pressure : / mmHG Vent. Rate : 099 BPM Atrial Rate : 099 BPM P-R Int : 140 ms QRS Dur : 142 ms QT Int : 464 ms P-R-T Axes : 052 -21 117 degrees QTc Int : 595 ms Normal sinus rhythm Left bundle branch block Abnormal ECG No previous ECGs available Referred By: Negrita Gaitan Electronically Signed By:QUINN DAVIS MD
[2020-04-15 11:49] LABS: Magnesium 1.2 mg/dL (1.6-2.6)
[2020-04-15] MEDS: Magnesium Sulfate/H2O 2 GM/50 ML PIGGYBACK IV (12:06)
[2020-04-15] MEDS: Metoprolol Tartrate 5 MG in 0.9 % Sodium Chloride 50 ML 200 MG IV ×3 (12:13→19:00)
[2020-04-15 12:28] LABS: SARS COV2 PCR INHOUSE NEGATIVE (Negative)
--- NOTE | 2020-04-15 13:42 | HO.PM.IMPN ---
Subjective Subjective Date of Service: 04/15/20 Interval History: patient seen and examined at bedside patient continues to remain febrile , lethargic and reporting some shortness of breath Constitutional Constitutional: Reports fever(s) and Reports weakness Cardiovascular Cardiovascular: Denies chest pain and Reports dyspnea Respiratory Respiratory: Reports dyspnea Neurologic Neurologic: Reports confusion and Reports weakness Psychiatric Psychiatric: Reports confusion Physical Exam Vital Signs: Vital Signs: Vital Signs Temp Pulse Resp BP Pulse Ox 04/15/20 12:13 104 H 122/55 L 04/15/20 11:05 100.0 F 104 H 20 122/56 L 92 04/15/20 10:18 100.9 F H 04/15/20 07:00 101.8 F H 110 H 20 160/112 H 96 04/15/20 04:15 97 04/15/20 03:05 99.7 F 114 H 22 H 142/52 H 04/15/20 00:37 101.1 F H 04/14/20 23:18 100.9 F H 109 H 22 H 138/92 H 92 04/14/20 19:51 101.4 F H 117 H 25 H 154/59 H 94 04/14/20 15:48 109 H 26 H 141/49 H 95 Body Mass Index 24.9 Const: General: confusion and ill appearing Orientation/consciousness: confusion Resp: Auscultation: rhonchi Cardio: Jugular venous distension: no JVD Rate: tachycardic GI: Inspection: Yes normal to inspection Auscultation: normal bowel sounds Neuro: General: confusion Objective Data Current Medications Generic Name Dose Route Start Last Admin Trade Name Freq PRN Reason Stop Dose Admin Acetaminophen 650 mg 04/14/20 09:51 04/15/20 07:52 Acetaminophen Supp 650 Mg Supp.Rect MN 650 mg Q6H PRN Administration Fever Atorvastatin Calcium 40 mg 04/12/20 21:00 04/14/20 19:59 Atorvastatin Calcium 40 Mg Tablet PO Not Given BEDTIME AXEL Dextrose/Sodium Chloride 1,000 mls @ 100 mls/hr 04/13/20 12:15 04/15/20 08:23 D5ns IVCONT 100 mls/hr .Q10H [facility] Administration Vancomycin HCl 1,000 mg/ 270 mls @ 180 mls/hr 04/14/20 16:00 04/15/20 04:47 Sodium Chloride IV Infused Q12H [facility] Infusion Magnesium Sulfate 2 gm in 50 mls @ 25 mls/hr 04/15/20 11:50 04/15/20 12:06 IV 04/15/20 13:49 25 mls/hr ONCE ONE Administration Metoprolol Tartrate 5 mg/ 55 mls @ 200 mls/hr 04/15/20 16:30 Sodium Chloride IV Q6H [facility] Piperacillin Sod/Tazobactam 50 mls @ 100 mls/hr 04/15/20 14:00 Sod 3.375 gm/ Sodium Chloride IV Q6H [facility] Doxycycline Hyclate 100 mg/ 250 mls @ 250 mls/hr 04/15/20 13:45 Sodium Chloride IV Q12H [facility] Insulin Human Lispro 0 unit 04/12/20 21:00 04/15/20 12:05 Insulin Lispro 100 Unit/Ml 3 Ml Vial SUBCUT 4 unit QIDACHS [facility] Administration Protocol Magnesium Oxide 400 mg 04/13/20 17:30 04/15/20 07:56 Magnesium Oxide 400 Mg Tablet PO Not Given BIDPC [facility] Melatonin 3 mg 04/12/20 21:00 04/14/20 20:00 Melatonin 3 Mg Tablet PO Not Given BEDTIME [facility] Pharmacy Consult 1 each 04/12/20 10:28 Consult Rx Perform Med Rec MISCELLANE ONCE PRN Consult order Sodium Chloride 3 ml 04/12/20 16:13 04/15/20 07:50 0.9 % Sodium Chloride Flush 3 Ml Syringe IVFLUSH Not Given QSHIFT [facility] Labs CBC & Chem 7: 04/15/20 08:09 04/15/20 08:09 Microbiology Microbiology Results: Microbiology 04/12/20 11:50 Urine clean catch - Clean Catch Midstream Urine Culture - Final No growth. 04/14/20 14:04 Cerebrospinal Fluid Gram Stain - Final 04/14/20 14:04 Cerebrospinal Fluid CSF Examination - Final 04/14/20 14:04 Cerebrospinal Fluid Gross Specimen Examination - Final 04/14/20 14:04 Cerebrospinal Fluid CSF Culture - Preliminary No growth after 1 day 04/12/20 10:46 Blood - Venous Blood Culture - Preliminary No growth after 48 hours. 04/12/20 10:46 Blood - Venous Blood Culture - Preliminary No growth after 48 hours. Assessment and Plan (1) Fever: Status: Acute (2) Altered mental status: Status: Acute (3) Hypomagnesemia: Status: Acute (4) Generalized weakness: Status: Acute (5) Diabetes mellitus, type 2: Status: Acute (6) Chronic subdural hematoma: Status: Acute Assessment and Plan: 69-year-old female recently discharged from [facility] with falls weakness and subarachnoid hemorrhage to short-term rehab , presented with fever and confusion, CT head on admission shows stable small subarachnoid bleed , patient found to have fever of 104 on admission, UA and chest x-ray shows no acute abnormality Sepsis and confusion ,source not clear repeat chest x-ray shows focal infiltrate possible pneumonia COVID PCR negative UA and chest x-ray on admissionshows no acute abnormality CT abdomen shows no acute abnormality CT head on admission shows stable subarachnoid bleed MRI brain shows stable subarachnoid bleed and possible meningioma Blood culture and urine culture preliminary negative respiratory panel negative lumbar puncture done yesterday shows mildly elevated protein, WBCs normal, CSF meningitis panel negative, discussed with ID again recommended stopping acyclovir and Rocephin, and switched to Zosyn Vanco and Levaquin , as repeat chest x-ray showing infiltrates, id recommended checking urine Legionella and Levaquin, QTC is high, will start on doxycycline, if QTC improved will start Levaquin continues to spike fever Toxic metabolic encephalopathy continues to remain confused and lethargic monitor mental status closely Atrial fibrillation with RVR patient has episode of SVT today magnesium level was low replaced cardiology consult requested initially recommended Cardizem drip patient converted to sinus rhythm will hold Cardizem drip continue IV Lopressor as unable to take p.o. anticoagulants on hold given recent subarachnoid bleed monitor on telemetry hypo magnesemia replaced monitor magnesium Difficulty swallowing secondary to confusion will keep NPO continue D5 NS acute on chronic anemia no active bleeding hemoglobin dropped from 8-7.2 stool for occult blood pending status post 1 unit of PRBCs hemoglobin improved to 8 monitor CBC monitor CBC Diabetes mellitus on metformin at home hold metformin hold insulin as blood glucose low monitor blood glucose DVT prophylaxis Venodyne boot given recent subarachnoid bleed and anemia discussed with healthcare proxy at bedside as patient is confused and not competent to make her decisions, healthcare proxy has confirmed patient DNR DNI, healthcare proxy brought paperwork signed by patient is DNR DNI, family wants to try pressors if patient became hypotensive, patient is becoming more lethargic and febrile, discussed with healthcare proxy about poor prognosis
--- NOTE | 2020-04-15 14:01 | P.CONCA_ITS ---
History of Present Illness History of Present Illness Date of Consult: April 15, 2020 Requesting physician: Aditya Olmedo Chief complaint: fever encephalopathy Narrative: This 69-year-old female admitted for altered mental status. Recent history of fall and weakness and found to have a small intracranial hemorrhage. It appears that she was taking Eliquis in the past prior to that. Current issues that she is having runs of tachycardia on telemetry. Otherwise she is having fevers of unknown etiology. COVID so far is negative. Otherwise no clear infection source found. Patient herself is really not able to give any information at all due to her mental status. We have been asked to assess her from the tachycardia standpoint. Review of Systems Review of Systems: Yes Unobtainable due to mental status PMFSH Past Medical History Medical History (Updated 04/15/20 @ 14:05 by Be Berry MD) Atrial fibrillation Atrial fibrillation Chronic pericarditis Diabetes Diabetes mellitus, type 2 Diffuse large B cell lymphoma Gait instability Head injury Hypertension Lymphoma Paroxysmal atrial fibrillation Functional capacity: uses cane/walker Family History Family History Other Hypertension Surgical History Surgical History Surgical history unknown Social History Social History Household Members: Other Housing: Intermediate Alcohol intake: never Smoking Status: Smoker, status unknown Use of substances other than those prescribed or required for medical reasons: No Currently Displaying Signs/Symptoms of Drug Intoxication Withdrawal: No Have you been hit, kicked, punched, or otherwise hurt by someone within the past year? If so, by whom?: No Do you feel safe in your current relationship?: No Current Relationship Is there a partner from a previous relationship who is making you feel unsafe now?: No Are you made to feel afraid or neglected: No Advance Directives: Yes Advance Directives Information Provided: Yes Advance Directives on File: No Advance Directives Date on File: 04/12/20 Do you have thoughts of harming others: None Do you have a plan to hurt others: No Plan Recently lost weight without trying: No service: No Current occupational status: retired Meds Allergies Allergy/AdvReac Type Severity Reaction Status Date / Time colchicine Allergy Unknown Verified 04/07/20 19:29 Home Medications Medication Instructions Recorded Confirmed Type atorvastatin 40 mg PO BEDTIME 04/08/20 04/12/20 History diltiazem HCl 120 mg PO DAILY 04/08/20 04/12/20 History melatonin 3 mg PO BEDTIME 04/08/20 04/12/20 History metformin 1,000 tab PO BIDWMEAL 04/08/20 04/12/20 History metoprolol succinate 150 mg PO DAILY 04/08/20 04/12/20 History pantoprazole [Protonix] 40 mg PO DAILY@0600 04/08/20 04/12/20 History Physical Exam Vital Signs: Vital Signs: Vital Signs Temp Pulse Resp BP Pulse Ox 04/15/20 12:13 104 H 122/55 L 04/15/20 11:05 100.0 F 104 H 20 122/56 L 92 04/15/20 10:18 100.9 F H 04/15/20 07:00 101.8 F H 110 H 20 160/112 H 96 04/15/20 04:15 97 04/15/20 03:05 99.7 F 114 H 22 H 142/52 H 04/15/20 00:37 101.1 F H 04/14/20 23:18 100.9 F H 109 H 22 H 138/92 H 92 04/14/20 19:51 101.4 F H 117 H 25 H 154/59 H 94 04/14/20 15:48 109 H 26 H 141/49 H 95 Body Mass Index 24.9 appears comfortable but somnolent and not answering questions appropriately; falls asleep during questioning No pallor, icterus or cyanosis HEENT -unremarkable JVD- normal Cardiac- normal heart sounds, no murmurs, gallops or rubs, normal PMI Respiratory-normal breath sounds bilaterally, no crackles, no wheeze Abdomen- soft, nontender Neuro- somnolent Lower extremities- no significant edema, warm well perfused Results Labs and Meds Result diagrams: 04/15/20 08:09 04/15/20 08:09 Lab results: Laboratory Results - last 24 hr 04/14/20 04/14/20 04/14/20 14:04 14:04 14:33 WBC RBC Hgb Hct MCV MCH MCHC RDW Plt Count MPV Immature Gran % (Auto) Neut % (Auto) Lymph % (Auto) Republic % (Auto) Eos % (Auto) Baso % (Auto) Lymph # (Auto) Republic # (Auto) Eos # (Auto) Baso # (Auto) Abs Immat Gran (auto) Absolute Neuts (auto) Absolute Nucleated RBC Nucleated RBC % (auto) Smear Tech's Comments Sodium Potassium Chloride Carbon Dioxide Anion Gap BUN Creatinine Estim Creat Clear Calc Estimated GFR POC Glucose Random Glucose Calcium Magnesium CSF Tube Number 2 1 CSF Volume 2.0 CSF Appearance CLEAR CLEAR CSF Color COLORLESS CSF WBC 3 CSF RBC 840 CSF Lymphocytes 100 CSF Glucose 138 CSF Total Protein 68.6 H CSF Mening/Enceph PCR SEE NOTE Vancomycin Trough Coronavirus (PCR) 04/14/20 04/14/20 04/15/20 14:45 16:06 02:53 WBC RBC Hgb Hct MCV MCH MCHC RDW Plt Count MPV Immature Gran % (Auto) Neut % (Auto) Lymph % (Auto) Republic % (Auto) Eos % (Auto) Baso % (Auto) Lymph # (Auto) Republic # (Auto) Eos # (Auto) Baso # (Auto) Abs Immat Gran (auto) Absolute Neuts (auto) Absolute Nucleated RBC Nucleated RBC % (auto) Smear Tech's Comments Sodium Potassium Chloride Carbon Dioxide Anion Gap BUN Creatinine Estim Creat Clear Calc Estimated GFR POC Glucose 190 H Random Glucose Calcium Magnesium CSF Tube Number CSF Volume CSF Appearance CSF Color CSF WBC CSF RBC CSF Lymphocytes CSF Glucose CSF Total Protein CSF Mening/Enceph PCR Vancomycin Trough 9.1 L 14.3 Coronavirus (PCR) 04/15/20 04/15/20 04/15/20 06:59 08:09 08:09 WBC 3.9 L RBC 3.01 L Hgb 8.2 L Hct 26.4 L MCV 87.7 MCH 27.2 MCHC 31.1 RDW 17.8 H Plt Count 68 L D MPV 10.3 Immature Gran % (Auto) 1.8 H Neut % (Auto) 65.8 Lymph % (Auto) 12.1 L Republic % (Auto) 16.7 H Eos % (Auto) 3.1 Baso % (Auto) 0.5 Lymph # (Auto) 0.5 L Republic # (Auto) 0.7 Eos # (Auto) 0.1 Baso # (Auto) 0.0 Abs Immat Gran (auto) 0.07 H Absolute Neuts (auto) 2.6 Absolute Nucleated RBC 0.000 Nucleated RBC % (auto) 0.0 Smear Tech's Comments VERIFIED Sodium 134 L Potassium 3.3 Chloride 103 Carbon Dioxide 20 L Anion Gap 14 BUN 5 L Creatinine 0.81 Estim Creat Clear Calc 60.4 Estimated GFR > 60 POC Glucose 180 H Random Glucose 233 H Calcium 7.3 L Magnesium 1.2 L* CSF Tube Number CSF Volume CSF Appearance CSF Color CSF WBC CSF RBC CSF Lymphocytes CSF Glucose CSF Total Protein CSF Mening/Enceph PCR Vancomycin Trough Coronavirus (PCR) 04/15/20 04/15/20 10:55 11:02 WBC RBC Hgb Hct MCV MCH MCHC RDW Plt Count MPV Immature Gran % (Auto) Neut % (Auto) Lymph % (Auto) Republic % (Auto) Eos % (Auto) Baso % (Auto) Lymph # (Auto) Republic # (Auto) Eos # (Auto) Baso # (Auto) Abs Immat Gran (auto) Absolute Neuts (auto) Absolute Nucleated RBC Nucleated RBC % (auto) Smear Tech's Comments Sodium Potassium Chloride Carbon Dioxide Anion Gap BUN Creatinine Estim Creat Clear Calc Estimated GFR POC Glucose 224 H Random Glucose Calcium Magnesium CSF Tube Number CSF Volume CSF Appearance CSF Color CSF WBC CSF RBC CSF Lymphocytes CSF Glucose CSF Total Protein CSF Mening/Enceph PCR Vancomycin Trough Coronavirus (PCR) NEGATIVE EKG Interpretation EKG Comments: admission EKG shows sinus tachycardia with nonspecific ST-T changes. Repeat EKG from today shows sinus rhythm with a left bundle-branch block pattern. Assessment and Plan (1) Tachycardia: Status: Acute (2) Paroxysmal atrial fibrillation: Status: Acute (3) Altered mental status: Qualifiers: Altered mental status type: unspecified Qualified Code(s): R41.82 - Altered mental status, unspecified Status: Acute (4) Generalized weakness: Status: Acute (5) Fever: Qualifiers: Fever type: unspecified Qualified Code(s): R50.9 - Fever, unspecified Status: Acute She has a history of paroxysmal atrial fibrillation, but the current episodes seem to be rather atrial tachycardia versus SVT. Less likely atrial flutter but still possible. As it is regular, doubt if it atrial fibrillation. At home, she seems to be on a combination of beta-blockers as well as calcium channel blockers. Unable to take his orally due to her mental status. Can try IV beta blockers q.4 hours. If very frequent tachycardia, then start Cardizem drip. However, unless the fever is controlled and the infection /metabolic issues improved, she may have recurrent arrhythmias. As she is hemodynamically stable, this is acceptable.
[2020-04-15] MEDS: Piperacillin Sodium/Tazobactam 3.375 GM in 0.9 % Sodium Chloride 50 ML IV ×2 (14:15→20:39)
[2020-04-15] MEDS: Doxycycline Hyclate 100 MG in 0.9 % Sodium Chloride 250 ML 250 MG IV (14:33)
[2020-04-15] MEDS: 0.9 % Sodium Chloride Flush 3 ML SYRINGE IVFLUSH (14:34)
[2020-04-15 15:18] LABS: Magnesium 1.7 mg/dL (1.6-2.6)
[2020-04-15] MEDS: Magnesium Sulfate/D5W 1 GM/100 ML PIGGYBACK IV (16:08)
--- NOTE | 2020-04-15 16:45 | ECG_ITS ---
Test Reason : check qtc Blood Pressure : / mmHG Vent. Rate : 093 BPM Atrial Rate : 093 BPM P-R Int : 140 ms QRS Dur : 146 ms QT Int : 376 ms P-R-T Axes : 057 -20 121 degrees QTc Int : 467 ms Normal sinus rhythm Left bundle branch block Nonspecific ST abnormality Abnormal ECG When compared with ECG of 12-APR-2020 11:25, No significant change was found Referred By: Negrita Gaitan Electronically Signed By:QUINN DAVIS MD
[2020-04-15 17:11] LABS: Glucose, Whole Blood 141 mg/dL (60-115)
--- NOTE | 2020-04-15 18:30 | PC.NURSE ---
PATIENT HAD THREE EPISODES SVT THROUGHOUT THE DAY. FIRST ONE LASTING ABOUT 30SECONDS, SECOND 40 MINUTES AND THE LAST ONE STARTING AT 6:20 AND CONTINUED AFTER I HAVE LEFT THE FACILITY. MD MADE AWARE OF ALL EPISODES. MEDICATIONS GIVEN PER MD ORDERED. PATIENT ALSO DESATING INTO 70'S, PLACED ON A NON-REBREATHER, IMMEDIATELY RECOVERED INTO 90'S.
[2020-04-15] MEDS: dilTIAZem HCL 125 MG in 0.9 % Sodium Chloride 100 ML 15 MG IVCONT (19:31)
[2020-04-15 20:51] LABS: Glucose, Whole Blood 164 mg/dL (60-115)
[2020-04-16 00:19] VITALS: BP 132/61; PULSE 94
[2020-04-16] MEDS: 0.9 % Sodium Chloride Flush 3 ML SYRINGE IVFLUSH (00:19)
[2020-04-16] MEDS: Metoprolol Tartrate 5 MG in 0.9 % Sodium Chloride 50 ML 200 MG IV ×2 (00:19→04:55)
[2020-04-16] MEDS: Doxycycline Hyclate 100 MG in 0.9 % Sodium Chloride 250 ML 250 MG IV (01:05)
[2020-04-16] MEDS: Piperacillin Sodium/Tazobactam 3.375 GM in 0.9 % Sodium Chloride 50 ML IV (02:06)
[2020-04-16] MEDS: vancomycin HCL 1,000 MG in 0.9 % Sodium Chloride 250 ML 180 MG IV (03:05)
[2020-04-16 03:38] VITALS: BP 122/59; PULSE 92; RESP 24; TEMP 36.4; O2SAT 100
[2020-04-16 04:55] VITALS: BP 124/57; PULSE 93
[2020-04-16] MEDS: Dextrose 5 % and 0.9 % NaCl 1,000 ML 100 ML IVCONT (05:12)
--- NOTE | 2020-04-16 06:21 | PC.NURSE ---
AT APPROXIMATELY 0546 PT'S HR NOTICED TO BE EXTREMELY ERWIN IN THE 40'S ON THE MONITOR. UPON IMMEDIATE ARRIVAL TO ROOM, PT WAS NOTED TO HAVE A CHANGE IN RESPIRATORY PATTERN COMPARABLE TO LILLIAN SHARP RESPIRATIONS AND AN IMMEDIATE DROP IN HR FROM 40'S TO 20'S TO ASYSTOLE. DR. LEMUS IMMEDIATELY MADE AWARE OF THE RAPID DECLINE AND UP TO FLOOR TO ASSESS. PER DR. LEMUS'S ORDER, 1MG [place] 0551WITH NO EFFECT. PT ASYSTOLE ON HEART MONITOR. EKG ORDERED AND WAS DONE AT BEDSIDE. FINAL READING OF EKG SHOWED ASYSTOLE AND WAS REVIEWED BY DR. LEMUS. PT'S CODE STATUS IS DNR/DNI AND HEALTH CARE PROXY IS HER SISTER, APRIL. [employer] CALLED PER PROTOCOL AND PATIENT WAS DECLINED FOR DONATION PER IMANI (REFERENCE# [id number]).
--- NOTE | 2020-04-16 06:47 | PM.EVENT ---
Event Note Event Note: patient was placed on Cardizem drip early in the evening 1023 due to SVT. Around 11:00 p.m. received message from nurse that patient's heart rate is in the 80s and Cardizem drip was titrated off. Around 6:00 a.m. this morning 04/16 received a call from nurse that patient went into asystole. according to nursing staff patient drop down from the 50s to 40s to 0 within 30 seconds. On my arrival to the patient at bedside patient's pulseless, asystole on monitor. 0.5 mg of atropine was administered with no success. Patient pronounced at 6:00a.m. her sister Ethel Roldan was called and informed of patient's passing.
--- NOTE | 2020-04-16 07:57 | P.DN_ITS ---
Discharge Sum: Prov Provider Primary care physician: Smith Crowell MD Consults: 04/13/20 14:32 Consult to Neurology Routine Consulting Provider: [facility] Reason for consultation: fever confusion 04/15/20 12:41 Consult to Cardiology Routine Consulting Provider: Be Berry Reason for consultation: SVT Discharge Sum: Diag Contributing Factors (1) Sepsis: (2) Paroxysmal atrial fibrillation: (3) Fever: (4) Altered mental status: (5) Hypomagnesemia: Discharge Sum: Summary Date and Time Date of admission: 04/12/20 13:43 Summary Details: 69-year-old female initially admitted with SIRS and toxic metabolic encephalopathy, patient continues to spike fever, etiology of sepsis remains unclear, UA and chest x-ray on admission shows no acute abnormality, CT head on admission shows stable subarachnoid bleed, blood cultures were sent, patient was started on broad-spectrum antibiotic and acyclovir to cover for meningitis, id and Neurology was consulted recommended MRI brain with contrast and LP to rule out meningitis, MRI brain shows stable subarachnoid bleed and possible meningioma, LP was done , shows mildly elevated protein no others abnormality, CSF meningitis encephalitis panel was negative, id recommended to stop acyclovir and Rocephin and recommended to continue Vanco and Zosyn and adding atypical coverage as repeat chest x-ray shows some infiltrates rule out Legionella pneumonia, QTC was significantly prolonged, unable to start Levaquin because of QTC, patient was started on IV doxycycline, patient continues to remain febrile and encephalopathy, goals of care discussed with patient's sister healthcare proxy, patient has written goals of care for DNR DNI, healthcare proxy wants to continue IV antibiotic and fluid, patient developed multiple episodes of SVT, patient was continued on IV Lopressor, hypo magnesemia was replaced, legionella antigen was negative,culture remain negative , cardiology was consulted recommended continue Lopressor, patient was also started on Cardizem drip for prolonged SVT and later stopped , patient became bradycardic on 04/16 around 06:00 am and went into asystole, patient on 04/16/2020 at 06:00 am Additional Data Attending physician: Aditya Olmedo MD
[2020-04-17 08:32] LABS: HIV AB/AG Nonreactive (Nonreactive); HIV Num 1 0.07 S/CO (0.00-0.99)
[2020-04-19 01:11] LABS: HSV 1 DNA, CSF Not Detected (Not Detected); HSV 2 DNA, CSF Not Detected (Not Detected); Specimen Source CSF
[2020-04-19 05:26] LABS: Legionella Ag Urine Not Detected (Not Detected)
== END 2020-04-16 06:00 | disposition expired | DRG 871 ==
LOC: HO.ED 13:44 → HO.IMC 14:10
PROVIDERS: Internal Medicine; Admitting Provider Internal Medicine; Emergency Provider Emergency Medicine; PCP Family Medicine; Visit Provider Internal Medicine
DX: A41.9 Sepsis, unspecified organism (principal); G92 Toxic encephalopathy; I47.1 Supraventricular tachycardia; I48.0 Paroxysmal atrial fibrillation; E83.42 Hypomagnesemia; D64.9 Anemia, unspecified; E11.9 Type 2 diabetes mellitus without complications; Z20.828 Contact with and (suspected) exposure to other viral communicable diseases; Z79.84 Long term (current) use of oral hypoglycemic drugs; Z79.899 Other long term (current) drug therapy
CPT/HCPCS: 36415; 62328; 70450; 70553; 71045; 71046; 71250; 74176; 80048; 80053; 80076; 80202; 81001; 81003; 82728; 82803; 82945; 82947; 83605; 83615; 83690; 83735; 83880; 84145; 84157; 84484; 85025; 85027; 85379; 85610; 85730; 86140; 86850; 86900; 86901; 86920; 86923; 87015; 87040; 87070; 87086; 87205; 87389; 87449; 87529; 87633; 87635; 89051; 93005; 94640; 96361; 96365; 96366; 96367; 96374; 96375; 96376; 97110; 97116; 97163; 99219; 99223; 99284; 99285; 99291; C1758; J0133; J2405; J3430; J3475; P9016

== ENCOUNTER 2020-04-17 | Outpatient (REF) | payer MEDICARE, SELFPAY | END 2020-04-17 00:01 | disposition home or self-care (01) | LOC: HO.MMNH1L | PROVIDERS: Visit Provider Family Medicine | DX: I10 Essential (primary) hypertension (principal); E11.9 Type 2 diabetes mellitus without complications; R53.1 Weakness | CPT/HCPCS: J0461 ==